=== PATIENT | male | born 2000 | race Hispanic/Latino ===

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

== ENCOUNTER 2020-04-05 14:31 | Emergency (ER) | payer OTHER, MEDICAID, SELFPAY ==
[2020-04-05 14:34] VITALS: BP 127/58; PULSE 95; RESP 16; TEMP 36.7; O2SAT 97; BMI 29.9
[2020-04-05 15:09] LABS: COVID19 -Nasal RAPID Negative (Negative)
--- NOTE | 2020-04-05 16:17 | ED.URI ---
HPI - URI/Sore Throat General Chief Complaint: Upper Respiratory Symptoms Stated Complaint: bad cough, sore throat past week Time Seen by Provider: 04/05/20 16:00 Source: patient Mode of arrival: Ambulatory Limitations: no limitations History of Present Illness HPI Narrative: This is a 20-year-old male who comes with complaint of cough, sore throat for the past week and increased use of his inhaler. Denies fevers or chills. He states he has had about a week of symptoms. He states he has had some congestion kind of in his throat, he states he will cough up some discolored sputum. He denies much nasal congestion. He has not had a lot of sinus pressure but has had some. He states his throat is sore but has not had any changes to his voice. He has having little bit more shortness of breath and wheezing has been using his inhaler 4 times daily rather than his usual 2 times daily. He denies any chest pain or pressure, denies any nausea or vomiting no denies any GI or urinary symptoms no diarrhea. No rashes or skin changes. Besides asthma he takes medication for mood. He takes hydroxyzine, trazodone and fluoxetine 10 uses albuterol inhaler. He has not been on oral steroids in the past. He does smoke 4 cigarettes daily. Denies any illicit. Denies any surgeries. Related Data Previous Rx's Medication Instructions Recorded loratadine [Claritin] 10 mg PO DAILY #14 tab 04/05/20 prednisone 40 mg PO DAILY 5 Days #10 tab 04/05/20 Allergies Allergy/AdvReac Type Severity Reaction Status Date / Time No Known Drug Allergies Allergy Verified 04/05/20 14:34 Review of Systems Review of Systems ROS Unobtainable: All systems reviewed & are unremarkable except as noted in HPI and below Patient History Medical History (Updated 04/05/20 @ 16:28 by Renetta Paredes DO) No pertinent family history Reactive airway disease Surgical History No pertinent past surgical history Social History Smoking Status: Current every day smoker Smoking Status: Current every day smoker tobacco type: vaping alcohol intake frequency: other Substance Use Type: marijuana and hallucinogens Exam Narrative Exam Narrative: GEN: well nourished, well appearing male, alert and oriented x 3, patient appears to be in mild distress. HEENT: Atraumatic, pupils are equal round reactive to light, extraocular movements are intact, nares are clear, TMs are clear with no fluid, there is no conjunctival pallor. Throat is clear without any exudates, mild erythema, cobblestoning, no tonsillar enlargement or uvular deviation HEART: Regular rate and rhythm without murmur, clicks, rubs. LUNGS:Lungs clear to auscultation, no wheezes, rales, crackles, chest moves symmetrically, no wheeze, accessory muscle use or active cough in the room. ABD:bowel sounds normal, soft, non-tender, no guarding, rebound, rigidity, no masses noted, no hepatosplenomegaly MSCL: Non-tender, full range of motion, normal gait NEURO:CN 2-12 intact, sensation normal SKIN: no rash, erythema or other skin changes. Initial Vital Signs Initial Vital Signs: Vital Signs Temperature 98.1 F 04/05/20 14:34 Pulse Rate 95 H 04/05/20 14:34 Respiratory Rate 16 04/05/20 14:34 Blood Pressure 127/58 L 04/05/20 14:34 Pulse Oximetry 97 04/05/20 14:34 Course Orders Ordered: ED Orders 04/05/20 14:39 COVID19 Stat Vital Signs Vital signs: Vital Signs - 8 hr 04/05/20 14:34 04/05/20 16:35 Temperature 98.1 F Pulse Rate 95 H 83 Respiratory Rate 16 Blood Pressure 127/58 L 127/70 Pulse Oximetry 97 98 MDM - URI/Sore Throat Lab Data Attestation: I reviewed the patient's lab results. Labs: Lab Results 04/05/20 Range/Units 14:39 SARS-CoV-2 (PCR) Negative (Negative) Point of Care Testing Rapid Strep A Negative MDM Narrative Medical decision making narrative: 20-year-old male comes in with complaint of sore throat, cough and increased use of his inhaler. Suspect he may have a little bronchitis and/or viral pharyngitis. His point of care strep is negative as well as COVID swab. He does not have any active wheezing but I would start him on oral steroid in addition to his regular albuterol. He states he has plenty and a daily antihistamine. Discharge Plan Departure Patient Disposition: Home Clinical Impression: Pharyngitis Instructions: DI for Viral Pharyngitis Activity Restrictions/Additional Instructions: Follow-up with your physician in the next week if you have not had improvement of your symptoms. Take antihistamine once daily until symptoms improve. You may take this regularly if you find significantly helpful for seasonal type allergies symptoms. Take steroids once daily until gone. [facility] [place]. Continue to use your albuterol inhaler 1-2 puffs every 4 hours as needed. Return to the ER for fevers, new or worsening chest pain, shortness of breath, difficulty with breathing, lightheadedness or passing out, if her requiring her inhaler more than every 4 hours, stridor, voice changes or difficulty breathing. Prescriptions: New loratadine [Claritin] 10 mg tablet 10 mg PO DAILY Qty: 14 RF: 0 prednisone 20 mg tablet 40 mg PO DAILY 5 Days Qty: 10 RF: 0 Referrals: Lion Momin MD [Primary Care Provider] -
[2020-04-05 16:35] VITALS: BP 127/70; PULSE 83; O2SAT 98
== END 2020-04-05 16:36 | disposition home or self-care (01) ==
PROVIDERS: Emergency Provider Emergency Medicine; Family Provider Pediatrics; PCP Pediatrics
DX: J02.9 Acute pharyngitis, unspecified (principal); R05 Cough; Z20.822 Contact with and (suspected) exposure to COVID-19
CPT/HCPCS: 87635; 87880; 99281; 99282; C9803

== ENCOUNTER 2021-04-16 11:52 | Emergency (ER) | payer OTHER, MEDICAID, SELFPAY ==
[2021-04-16] VITALS (11 sets, daily range): BP systolic 135–163; BP diastolic 72–95; PULSE 61–83; RESP 18–22; TEMP 36.4; O2SAT 98–100; BMI 27.3
--- NOTE | 2021-04-16 13:02 | DI.CT.S_ITS ---
PROCEDURE: CT ABDOMEN PELVIS W CON INDICATIONS: RLQ pain, ?appy, ?kidney stone TECHNIQUE: After the administration of intravenous contrast, axial sections acquired from the lung bases to the pubic symphysis. Coronal and sagittal reformats were performed. For radiation dose reduction, the following was used: automated exposure control, adjustment of mA and/or kV according to patient size. COMPARISON: None. FINDINGS: Image quality: Excellent. Lung bases: Unremarkable. Heart: No significant findings. ABDOMEN: Liver: Focal fatty infiltration is seen adjacent to the falciform ligament. Gallbladder: Unremarkable. Biliary ducts: Unremarkable. Pancreas: Unremarkable. Spleen: Unremarkable. Adrenal Glands: Unremarkable. Kidneys and Ureters: Left kidney is mildly anteriorly rotated, which is likely due to anatomic variation. No hydronephrosis. Stomach and Bowel: There is apparent bowel wall thickening within the descending and sigmoid colon into the rectum, which may be secondary to underdistention or colitis. Intramural fat is seen within the cecum with possible superimposed mild bowel wall thickening and trace pericolonic edema. The terminal ileum is mildly patulous. The appendix is normal in size without periappendiceal inflammatory changes. Peritoneum: No abnormal intraperitoneal fluid. No free air. Ventral Wall: No hernias. Abdominal Nodes: No retroperitoneal or mesenteric adenopathy by size criteria. Vessels: Aorta and inferior vena cava are normal in size. PELVIS: Pelvic Organs: The right testicle is located within the right inguinal canal. Bladder: Unremarkable. Pelvic Nodes: No enlarged lymph nodes. Miscellaneous: No hernias are seen. Bones: Unremarkable. IMPRESSION: 1. Mild bowel wall thickening in the descending and sigmoid colon and the rectum and possibly involving the cecum is suspicious for a nonspecific proctocolitis. 2. Normal appendix. 3. Right testicle is located within the right inguinal canal. Correlate for cryptorchidism. Dictated by: Scottie De La O M.D. on 04/16/2021 at 15:11 Approved by: Scottie De La O M.D. on 04/16/2021 at 15:17
[2021-04-16 13:11] LABS: Add Manual Diff / Slide Review NO; Basophils Absolute Auto 100 /uL (0-100); Basophils Percent Auto 0.8 % (0-2); Eosinophils Absolute Auto 200 /uL (0-450); Eosinophils Percent Auto 1.8 % (2-4); Hematocrit 48.1 % (41-53); Hemoglobin 16.4 g/dL (13.5-17.5); Lymphocytes Absolute Auto 2400 /uL (1100-4500); Lymphocytes Percent Auto 25.4 % (25-40); Mean Corpuscular HGB Conc 34.1 % (30-36); Mean Corpuscular Hemoglobin 28.9 PG (26-34); Mean Corpuscular Volume 84.7 fL (80-100); Monocytes Absolute Auto 700 /uL (0-900); Monocytes Percent Auto 7.2 % (3-14); Neutrophils Absolute Auto 6100 /uL (1500-7000); Neutrophils Percent Auto 64.8 % (50-75); Platelet Count 277 X10^3/uL (150-400); Red Blood Cell Count 5.68 X10^6/uL (4.5-5.9); Red Cell Distribution Width 14.1 % (11.6-14.8); White Blood Cell Count 9.5 X10^3/uL (4.5-11.0)
[2021-04-16] MEDS: SODIUM CHLORIDE 0.9% 1,000 ML 1000 ML IV (13:14)
[2021-04-16] MEDS: ONDANSETRON 4 MG/2 ML INJ IV (13:14)
[2021-04-16] MEDS: KETOROLAC 30 MG/ML VIAL 15 MG IV (13:14)
[2021-04-16 13:17] LABS: Alanine Aminotransferase 26 IU/L (<50); Albumin 5.5 g/dL (3.5-5.0); Albumin Globulin Ratio 1.4 (1.0-2.8); Alkaline Phosphatase 51 U/L (38-126); Aspartate Aminotransferase 38 IU/L (17-59); BUN Creatinine Ratio 17.3 (6-22); Bilirubin Total 0.9 mg/dL (0.2-1.3); Blood Urea Nitrogen 14 mg/dL (9-20); Calcium 10.4 mg/dL (8.4-10.2); Carbon Dioxide 27 mmol/L (22-32); Chloride 102 mmol/L (98-107); Estimated Glomerular Filt Rate > 60.0 mL/min (>60); Globulin 3.8 g/dL (1.7-4.1); Glucose 107 mg/dL (70-100); HEMOLYSIS 33 (0-50); Lactate (Lactic Acid) 3.3 mmol/L (0.7-2.1); Lipase 63 U/L (23-300); Sodium 140 mmol/L (137-145); Total Protein 9.3 g/dL (6.3-8.2)
--- NOTE | 2021-04-16 13:40 | ED.NAVMDI ---
HPI - Nausea/Vomiting/Diarrhea <Blanquita Kiser PA-C - Last Filed: 04/16/21 18:01> General Chief complaint: Nausea/Vomiting/Diarrhea Stated complaint: Abd pain and nausea Time Seen by Provider: 04/16/21 11:58 Source: patient Mode of arrival: EMS History of Present Illness HPI Narrative: 21-year-old male with no reported past medical history presents to the ED with 1 day of right-sided abdominal pain, nausea, vomiting. Patient states pain started suddenly this morning with nausea and vomiting, followed by 8/10 right-sided abdominal pain. Patient's last bowel movement was yesterday, which she describes as normal. Patient denies hematochezia, melena, hematemesis. Patient denies fever, chills, chest pain, shortness of breath, dysuria, flank pain, lightheadedness, dizziness, syncope. Patient denies history of abdominal surgeries. Related Data Previous Rx's Medication Instructions Recorded loratadine 10 mg tablet (Claritin) 10 mg PO DAILY #14 tab 04/05/20 Allergies Allergy/AdvReac Type Severity Reaction Status Date / Time No Known Drug Allergies Allergy Verified 04/16/21 11:56 Review of Systems <Blanquita Kiser PA-C - Last Filed: 04/16/21 18:01> Review of Systems ROS Unobtainable: All systems reviewed & are unremarkable except as noted in HPI and below Constitutional Constitutional: Denies chills, Denies fatigue, Denies fever(s), Denies frequent falls, Denies lethargy and Denies weakness Eyes Eyes: Denies change in vision, Denies eye discharge, Denies irritation and Denies loss of vision ENT Ears, Nose, Mouth, and Throat: Denies change in voice, Denies dizziness, Denies neck pain, Denies sore throat and Denies throat swelling Cardiovascular Cardiovascular: Denies chest pain, Denies irregular heart rhythm, Denies lightheadedness, Denies palpitations, Denies dyspnea, Denies dyspnea on exertion and Denies orthopnea Respiratory Respiratory: Denies cough, Denies dyspnea, Denies dyspnea on exertion and Denies wheezing Gastrointestinal Gastrointestinal: Reports abdominal pain, Denies change in bowel habits, Denies diarrhea, Reports nausea and Reports vomiting Genitourinary Genitourinary: Denies hematuria, Denies flank pain, Denies urinary incontinence and Denies urinary urgency Musculoskeletal Musculoskeletal: Denies back pain, Denies muscle weakness, Denies neck pain, Denies numbness and Denies tingling Integumentary/Breasts Skin/Breast: Denies pruritus, Denies erythema, Denies rash and Denies wounds Neurologic Neurologic: Denies behavioral changes, Denies confusion, Denies dizziness, Denies frequent falls, Denies loss of vision, Denies numbness, Denies tingling and Denies weakness Psychiatric Psychiatric: Denies anxiety, Denies behavioral changes, Denies confusion, Denies depression, Denies homicidal ideation and Denies suicidal ideation Endocrine Endocrine: Denies fatigue, Denies flushing and Denies palpitations Hematologic/Lymphatic Hematologic/Lymphatic: Denies easy bruising Allergic/Immunologic Allergic/Immunologic: Denies urticaria, Denies throat swelling and Denies wheezing Patient History <Blanquita Kiser PA-C - Last Filed: 04/16/21 18:01> Medical History (Updated 04/16/21 @ 15:40 by Blanquita Kiser PA-C) No pertinent family history Reactive airway disease Surgical History No pertinent past surgical history Social History Smoking Status: Current every day smoker Smoking Status: Current every day smoker tobacco type: vaping alcohol intake frequency: other Substance Use Type: marijuana and hallucinogens Exam <Blanquita Kiser PA-C - Last Filed: 04/16/21 18:01> Initial Vital Signs Initial Vital Signs: Vital Signs Temperature 97.5 F L 04/16/21 11:56 Pulse Rate 75 04/16/21 11:56 Respiratory Rate 22 04/16/21 11:56 Blood Pressure 135/95 H 04/16/21 11:56 Pulse Oximetry 100 04/16/21 11:56 Const General: cooperative, healthy appearing and comfortable [facility] Head: normal to inspection Eyes General: appearance normal, both eyes and all related structures Neck Neck: normal visual inspection Chest Chest: normal inspection of the chest Resp Effort & Inspection: normal respiratory effort Auscultation: clear to auscultation bilaterally Cardio Rate: regular rate Rhythm: regular rhythm GI Inspection: normal to inspection Other: Abdomen is soft, nondistended. Tender to palpation in the right lower quadrant. General: No CVA tenderness Skin General: no rashes or lesions noted Neuro General: patient alert, patient awake and patient oriented x3 Psych Appearance: grossly normal Mental Status: mental status grossly normal <Gerardo Bowers DO - Last Filed: 04/16/21 18:13> Initial Vital Signs Initial Vital Signs: Vital Signs Temperature 97.5 F L 04/16/21 11:56 Pulse Rate 75 04/16/21 11:56 Respiratory Rate 22 04/16/21 11:56 Blood Pressure 135/95 H 04/16/21 11:56 Pulse Oximetry 100 04/16/21 11:56 Course <Blanquita Kiser PA-C - Last Filed: 04/16/21 18:01> Orders Ordered: ED Orders 04/16/21 11:56 CBC Auto Diff [Complete Blood Count AUTO DIFF] Stat CMP [Comprehensive Metabolic Panel] Stat Lactate (Lactic Acid) Stat Lipase Stat 04/16/21 13:02 CT abdomen pelvis w con Stat Discontinued Medications Sodium Chloride (Normal Saline 0.9%) 1,000 mls @ 1,000 mls/hr IV BOLUS ONE Stop: 04/16/21 14:01 Last Infusion: 04/16/21 14:30 Dose: 0 mls/hr Documented by: Admin: 04/16/21 13:14 Dose: 1,000 mls/hr Documented by: [email or web address] Ketorolac Tromethamine (Ketorolac 30 Mg/Ml Vial) 15 mg IV NOW ONE Stop: 04/16/21 13:03 Last Admin: 04/16/21 13:14 Dose: 15 mg Documented by: [email or web address] Ondansetron HCl (Ondansetron 4 Mg/2 Ml Inj) 4 mg IV NOW ONE Stop: 04/16/21 13:03 Last Admin: 04/16/21 13:14 Dose: 4 mg Documented by: ELOISA Vital Signs Vital signs: Vital Signs - 8 hr 04/16/21 11:56 04/16/21 12:16 04/16/21 12:30 Temperature 97.5 F L Pulse Rate 75 73 83 Respiratory Rate 22 Blood Pressure 135/95 H Pulse Oximetry 100 100 100 04/16/21 12:32 04/16/21 13:00 04/16/21 13:04 Temperature Pulse Rate 71 76 70 Respiratory Rate Blood Pressure 140/77 163/79 H 151/80 H Pulse Oximetry 100 100 100 04/16/21 13:30 04/16/21 13:32 04/16/21 14:00 Temperature Pulse Rate 68 68 61 Respiratory Rate Blood Pressure 152/91 H Pulse Oximetry 100 100 98 04/16/21 14:01 04/16/21 16:10 Temperature Pulse Rate 70 81 Respiratory Rate 18 Blood Pressure 153/72 H 150/73 H Pulse Oximetry 100 99 <Gerardo Bowers, DO - Last Filed: 04/16/21 18:13> Orders Ordered: ED Orders 04/16/21 11:56 CBC Auto Diff [Complete Blood Count AUTO DIFF] Stat CMP [Comprehensive Metabolic Panel] Stat Lactate (Lactic Acid) Stat Lipase Stat 04/16/21 13:02 CT abdomen pelvis w con Stat Discontinued Medications Sodium Chloride (Normal Saline 0.9%) 1,000 mls @ 1,000 mls/hr IV BOLUS ONE Stop: 04/16/21 14:01 Last Infusion: 04/16/21 14:30 Dose: 0 mls/hr Documented by: Admin: 04/16/21 13:14 Dose: 1,000 mls/hr Documented by: [email or web address] Ketorolac Tromethamine (Ketorolac 30 Mg/Ml Vial) 15 mg IV NOW ONE Stop: 04/16/21 13:03 Last Admin: 04/16/21 13:14 Dose: 15 mg Documented by: ELOISA Ondansetron HCl (Ondansetron 4 Mg/2 Ml Inj) 4 mg IV NOW ONE Stop: 04/16/21 13:03 Last Admin: 04/16/21 13:14 Dose: 4 mg Documented by: ELOISA Vital Signs Vital signs: Vital Signs - 8 hr 04/16/21 11:56 04/16/21 12:16 04/16/21 12:30 Temperature 97.5 F L Pulse Rate 75 73 83 Respiratory Rate 22 Blood Pressure 135/95 H Pulse Oximetry 100 100 100 04/16/21 12:32 04/16/21 13:00 04/16/21 13:04 Temperature Pulse Rate 71 76 70 Respiratory Rate Blood Pressure 140/77 163/79 H 151/80 H Pulse Oximetry 100 100 100 04/16/21 13:30 04/16/21 13:32 04/16/21 14:00 Temperature Pulse Rate 68 68 61 Respiratory Rate Blood Pressure 152/91 H Pulse Oximetry 100 100 98 04/16/21 14:01 04/16/21 16:10 Temperature Pulse Rate 70 81 Respiratory Rate 18 Blood Pressure 153/72 H 150/73 H Pulse Oximetry 100 99 MDM - Nausea/Vomiting/Diarrhea <Blanquita Kiser PA-C - Last Filed: 04/16/21 18:01> Lab Data Lab results narrative: Lactate elevated to 3.3. Urine ketones likely due to vomiting. Result diagrams: 04/16/21 11:56 04/16/21 11:56 Labs: Lab Results 04/16/21 04/16/21 04/16/21 Range/Units 11:56 11:56 11:56 WBC 9.5 (4.5-11.0) X10^3/uL RBC 5.68 (4.5-5.9) X10^6/uL Hgb 16.4 (13.5-17.5) g/dL Hct 48.1 (41-53) % MCV 84.7 (80-100) fL MCH 28.9 (26-34) PG MCHC 34.1 (30-36) % RDW 14.1 (11.6-14.8) % Plt Count 277 (150-400) X10^3/uL Neut % (Auto) 64.8 (50-75) % Lymph % (Auto) 25.4 (25-40) % [place]ila % (Auto) 7.2 (3-14) % Eos % (Auto) 1.8 L (2-4) % Baso % (Auto) 0.8 (0-2) % Neut # (Auto) 6100 (0333-9471) /uL Lymph # (Auto) 2400 (3191-9986) /uL [place]ila # (Auto) 700 (0-900) /uL Eos # (Auto) 200 (0-450) /uL Baso # (Auto) 100 (0-100) /uL Sodium 140 (137-145) mmol/L Potassium 4.0 (3.4-5.1) mmol/L Chloride 102 (98-107) mmol/L Carbon Dioxide 27 (22-32) mmol/L BUN 14 (9-20) mg/dL Creatinine 0.81 (0.66-1.25) mg/dL Estimated GFR > 60.0 (>60) mL/min BUN/Creatinine Ratio 17.3 (6-22) Glucose 107 H (70-100) mg/dL Lactate 3.3 H (0.7-2.1) mmol/L Calcium 10.4 H (8.4-10.2) mg/dL Total Bilirubin 0.9 (0.2-1.3) mg/dL AST 38 (17-59) IU/L ALT 26 (<50) IU/L Alkaline Phosphatase 51 (38-126) U/L Total Protein 9.3 H (6.3-8.2) g/dL Albumin 5.5 H (3.5-5.0) g/dL Globulin 3.8 (1.7-4.1) g/dL Albumin/Globulin Ratio 1.4 (1.0-2.8) Lipase 63 (23-300) U/L 04/16/21 Range/Units 15:18 WBC (4.5-11.0) X10^3/uL RBC (4.5-5.9) X10^6/uL Hgb (13.5-17.5) g/dL Hct (41-53) % MCV (80-100) fL MCH (26-34) PG MCHC (30-36) % RDW (11.6-14.8) % Plt Count (150-400) X10^3/uL Neut % (Auto) (50-75) % Lymph % (Auto) (25-40) % Gila % (Auto) (3-14) % Eos % (Auto) (2-4) % Baso % (Auto) (0-2) % Neut # (Auto) (7613-2537) /uL Lymph # (Auto) (1831-2591) /uL Gila # (Auto) (0-900) /uL Eos # (Auto) (0-450) /uL Baso # (Auto) (0-100) /uL Sodium (137-145) mmol/L Potassium (3.4-5.1) mmol/L Chloride (98-107) mmol/L Carbon Dioxide (22-32) mmol/L BUN (9-20) mg/dL Creatinine (0.66-1.25) mg/dL Estimated GFR (>60) mL/min BUN/Creatinine Ratio (6-22) Glucose (70-100) mg/dL Lactate 1.5 (0.7-2.1) mmol/L Calcium (8.4-10.2) mg/dL Total Bilirubin (0.2-1.3) mg/dL AST (17-59) IU/L ALT (<50) IU/L Alkaline Phosphatase (38-126) U/L Total Protein (6.3-8.2) g/dL Albumin (3.5-5.0) g/dL Globulin (1.7-4.1) g/dL Albumin/Globulin Ratio (1.0-2.8) Lipase (23-300) U/L Urine Dip Bedside Urine Glucose Negative Bedside Urine Bilirubin - Negative Bedside Urine Ketone +++ 80 Urine Specific [place] 1.015 Bedside Urine Occult Blood - Negative Bedside Urine pH 8.5 Bedside Urine Protein - Negative Bedside Urine Urobilinogen - Negative Bedside Urine Nitrite - Negative Bedside Urine Leukocytes - Negative Esterase Imaging Data CT scan - abdomen/pelvis: Radiologist's Impression: PROCEDURE:? CT ABDOMEN PELVIS W CON ? INDICATIONS:? RLQ pain, ?appy, ?kidney stone ? TECHNIQUE:? After the administration of intravenous contrast, axial sections acquired from the lung bases to the pubic symphysis.? Coronal and sagittal reformats were performed.? For radiation dose reduction, the following was used:? automated exposure control, adjustment of mA and/or kV according to patient size.? ? COMPARISON:? None. ? FINDINGS:? Image quality:? Excellent.? ? Lung bases:? Unremarkable. Heart:? No significant findings. ? ABDOMEN: Liver:? Focal fatty infiltration is seen adjacent to the falciform ligament. Gallbladder:? Unremarkable. Biliary ducts:? Unremarkable.? ? Pancreas:? Unremarkable.? ? Spleen:? Unremarkable.? ? Adrenal Glands:? Unremarkable.? ? Kidneys and Ureters:? Left kidney is mildly anteriorly rotated, which is likely due to anatomic variation.? No hydronephrosis. ? ? Stomach and Bowel:? There is apparent bowel wall thickening within the descending and sigmoid colon into the rectum, which may be secondary to underdistention or colitis.? Intramural fat is seen within the cecum with possible superimposed mild bowel wall thickening and trace pericolonic edema.? The terminal ileum is mildly patulous.? The appendix is normal in size without periappendiceal inflammatory changes. Peritoneum:? No abnormal intraperitoneal fluid.? No free air.? ? Ventral Wall: ? No hernias.? Abdominal Nodes:? No retroperitoneal or mesenteric adenopathy by size criteria.? Vessels:? Aorta and inferior vena cava are normal in size.? ? PELVIS: Pelvic Organs:? The right testicle is located within the right inguinal canal. Bladder:? Unremarkable.? ? Pelvic Nodes: No enlarged lymph nodes.? Miscellaneous: No hernias are seen. ? ? ? Bones:? Unremarkable.? IMPRESSION:? 1. Mild bowel wall thickening in the descending and sigmoid colon and the rectum and possibly involving the cecum is suspicious for a nonspecific proctocolitis.? 2. Normal appendix. 3. Right testicle is located within the right inguinal canal.? Correlate for cryptorchidism. ? ? Dictated by: Scottie De La O M.D. on 04/16/2021 at 15:11 ? ? Approved by: Scottie De La O M.D. on 04/16/2021 at [facility] Narrative Medical decision making narrative: 21-year-old male with no reported past medical history presents to the ED with 1 day of right-sided abdominal pain, nausea, vomiting. Concern for appendicitis versus urolithiasis versus bowel obstruction. Will order labs, lipase, lactate, UA, CT abdomen pelvis. Will give Ketoralac, IV fluids, Zofran for symptoms. Will reassess. CT shows nonspecific proctocolitis. Patient's pain and vomiting resolved with ketorolac and Zofran. Counseled patient on findings, explained that it is a self-limiting condition. ED return precautions discussed and patient verbalized understanding. Also discussed the finding of cryptorchidism from the CT. Patient agree to follow-up with PCP. Discharge patient. <Gerardo Bowers, DO - Last Filed: 04/16/21 18:13> Lab Data Labs: Lab Results 04/16/21 04/16/21 04/16/21 Range/Units 11:56 11:56 11:56 WBC 9.5 (4.5-11.0) X10^3/uL RBC 5.68 (4.5-5.9) X10^6/uL Hgb 16.4 (13.5-17.5) g/dL Hct 48.1 (41-53) % MCV 84.7 (80-100) fL MCH 28.9 (26-34) PG MCHC 34.1 (30-36) % RDW 14.1 (11.6-14.8) % Plt Count 277 (150-400) X10^3/uL Neut % (Auto) 64.8 (50-75) % Lymph % (Auto) 25.4 (25-40) % Gila % (Auto) 7.2 (3-14) % Eos % (Auto) 1.8 L (2-4) % Baso % (Auto) 0.8 (0-2) % Neut # (Auto) 6100 (4642-0517) /uL Lymph # (Auto) 2400 (0531-6511) /uL Gila # (Auto) 700 (0-900) /uL Eos # (Auto) 200 (0-450) /uL Baso # (Auto) 100 (0-100) /uL Sodium 140 (137-145) mmol/L Potassium 4.0 (3.4-5.1) mmol/L Chloride 102 (98-107) mmol/L Carbon Dioxide 27 (22-32) mmol/L BUN 14 (9-20) mg/dL Creatinine 0.81 (0.66-1.25) mg/dL Estimated GFR > 60.0 (>60) mL/min BUN/Creatinine Ratio 17.3 (6-22) Glucose 107 H (70-100) mg/dL Lactate 3.3 H (0.7-2.1) mmol/L Calcium 10.4 H (8.4-10.2) mg/dL Total Bilirubin 0.9 (0.2-1.3) mg/dL AST 38 (17-59) IU/L ALT 26 (<50) IU/L Alkaline Phosphatase 51 (38-126) U/L Total Protein 9.3 H (6.3-8.2) g/dL Albumin 5.5 H (3.5-5.0) g/dL Globulin 3.8 (1.7-4.1) g/dL Albumin/Globulin Ratio 1.4 (1.0-2.8) Lipase 63 (23-300) U/L 04/16/21 Range/Units 15:18 WBC (4.5-11.0) X10^3/uL RBC (4.5-5.9) X10^6/uL Hgb (13.5-17.5) g/dL Hct (41-53) % MCV (80-100) fL MCH (26-34) PG MCHC (30-36) % RDW (11.6-14.8) % Plt Count (150-400) X10^3/uL Neut % (Auto) (50-75) % Lymph % (Auto) (25-40) % Gila % (Auto) (3-14) % Eos % (Auto) (2-4) % Baso % (Auto) (0-2) % Neut # (Auto) (0865-8887) /uL Lymph # (Auto) (8547-3168) /uL Gila # (Auto) (0-900) /uL Eos # (Auto) (0-450) /uL Baso # (Auto) (0-100) /uL Sodium (137-145) mmol/L Potassium (3.4-5.1) mmol/L Chloride (98-107) mmol/L Carbon Dioxide (22-32) mmol/L BUN (9-20) mg/dL Creatinine (0.66-1.25) mg/dL Estimated GFR (>60) mL/min BUN/Creatinine Ratio (6-22) Glucose (70-100) mg/dL Lactate 1.5 (0.7-2.1) mmol/L Calcium (8.4-10.2) mg/dL Total Bilirubin (0.2-1.3) mg/dL AST (17-59) IU/L ALT (<50) IU/L Alkaline Phosphatase (38-126) U/L Total Protein (6.3-8.2) g/dL Albumin (3.5-5.0) g/dL Globulin (1.7-4.1) g/dL Albumin/Globulin Ratio (1.0-2.8) Lipase (23-300) U/L Urine Dip Bedside Urine Glucose Negative Bedside Urine Bilirubin - Negative Bedside Urine Ketone +++ 80 Urine Specific [place] 1.015 Bedside Urine Occult Blood - Negative Bedside Urine pH 8.5 Bedside Urine Protein - Negative Bedside Urine Urobilinogen - Negative Bedside Urine Nitrite - Negative Bedside Urine Leukocytes - Negative Esterase Discharge Plan Departure Patient Disposition: Home Clinical Impression: Proctocolitis Instructions: DI for Colitis Activity Restrictions/Additional Instructions: You were evaluated in the ED today for nausea, vomiting, abdominal pain. Your labs were normal. Your CT showed some nonspecific proctocolitis, which is a self-limiting condition. You may take Tylenol, ibuprofen for your symptoms. Your CT also showed a undescended testicle on the right side. Please follow-up with your primary care provider for further workup. Return to the ED if your symptoms worsen, you develop fever, chills, uncontrollable vomiting. Prescriptions: No Action loratadine [Claritin] 10 mg tablet 10 mg PO DAILY Qty: 14 0RF <Gerardo Bowers, DO - Last Filed: 04/16/21 18:13> Cosign ED Attending Cosignature Attestation: Dr Bowers Co-Sign Statement: I was available for consultation during this patient's emergency department visit. This chart is signed by myself for administrative purposes only. I did not have direct contact with this patient during this visit. They were seen independently by the APC.
[2021-04-16 15:08] LABS: Reflexed Lactate in 2 Hours Y
[2021-04-16 15:37] LABS: Lactate 2HR (Lactic Acid Rflx) 1.5 mmol/L (0.7-2.1)
== END 2021-04-16 16:11 | disposition home or self-care (01) ==
PROVIDERS: Emergency Provider Student in an Organized Health Care Education/Training Program; Family Provider Pediatrics
DX: K51.30 Ulcerative (chronic) rectosigmoiditis without complications (principal)
CPT/HCPCS: 36415; 74177; 80053; 81003; 83605; 83690; 85025; 96361; 96374; 96375; 99284; J1885; J2405

== ENCOUNTER 2021-04-22 11:25 | Emergency (ER) | payer OTHER, MEDICAID, SELFPAY ==
[2021-04-22 11:31] VITALS: BP 122/69; PULSE 72; RESP 18; TEMP 36.1; O2SAT 98; BMI 28.1
[2021-04-22] MEDS: ONDANSETRON 4 MG/2 ML INJ IV (13:59)
[2021-04-22 14:01] LABS: Add Manual Diff / Slide Review NO; Basophils Absolute Auto 100 /uL (0-100); Basophils Percent Auto 0.8 % (0-2); Eosinophils Absolute Auto 0 /uL (0-450); Eosinophils Percent Auto 0.4 % (2-4); Hematocrit 44.4 % (41-53); Hemoglobin 15.4 g/dL (13.5-17.5); Lymphocytes Absolute Auto 2300 /uL (1100-4500); Lymphocytes Percent Auto 25.9 % (25-40); Mean Corpuscular HGB Conc 34.7 % (30-36); Mean Corpuscular Hemoglobin 28.9 PG (26-34); Mean Corpuscular Volume 83.1 fL (80-100); Monocytes Absolute Auto 600 /uL (0-900); Monocytes Percent Auto 6.8 % (3-14); Neutrophils Absolute Auto 5900 /uL (1500-7000); Neutrophils Percent Auto 66.1 % (50-75); Platelet Count 276 X10^3/uL (150-400); Red Blood Cell Count 5.35 X10^6/uL (4.5-5.9)
[2021-04-22 14:06] LABS: Bacteria Urine Few (2-10); Culture Indicated Urine Cult Not Indicated; Mucus Urine 3+ (Negative); RBC Urine None Seen (0-5/HPF); Squamous Epithelial Cell Urine 1-5 /HPF (0-5/HPF); WBC Urine 1-5/HPF (0-5/HPF)
[2021-04-22 14:18] LABS: Alanine Aminotransferase 39 IU/L (<50); Albumin 5.2 g/dL (3.5-5.0); Albumin Globulin Ratio 1.8 (1.0-2.8); Alkaline Phosphatase 46 U/L (38-126); Aspartate Aminotransferase 31 IU/L (17-59); BUN Creatinine Ratio 17.8 (6-22); Bilirubin Total 0.9 mg/dL (0.2-1.3); Blood Urea Nitrogen 13 mg/dL (9-20); Carbon Dioxide 27 mmol/L (22-32); Chloride 103 mmol/L (98-107); Estimated Glomerular Filt Rate > 60.0 mL/min (>60); Globulin 2.9 g/dL (1.7-4.1); Glucose 105 mg/dL (70-100); HEMOLYSIS < 15 (0-50); Lipase 50 U/L (23-300); Potassium 3.4 mmol/L (3.4-5.1); Sodium 141 mmol/L (137-145); Total Protein 8.1 g/dL (6.3-8.2)
--- NOTE | 2021-04-22 16:17 | ED_ITS ---
HPI - Nausea/Vomiting/Diarrhea General Chief complaint: Nausea/Vomiting/Diarrhea Stated complaint: Vomiting for a week Time Seen by Provider: 04/22/21 15:28 Source: patient Mode of arrival: Ambulatory Limitations: no limitations History of Present Illness HPI Narrative: This is a 21-year-old male comes emergency department with complaint of abdominal pain and vomiting with changes into his stool for the past week patient was seen here diagnosed with proctocolitis after CT scan imaging. He has continued to have emesis 1-2 times most days. Typically with solids he is able to tolerate fluids typically. His abdominal pain has significantly improved and is very mild almost gone. He has had 1 or 2 stools the past week that have been sort of jelly like. He denies any fevers or chills. No chest pain or shortness of breath. He states he typically vomits in the morning but not every day. He has not had issues like in this past. No prior surgeries. He does not have any family history of gastrointestinal issues, colitis or autoimmune issues. He does smoke tobacco, he uses marijuana, hallucinogens and occasional alcohol. He has been taking Zofran for the nausea which is somewhat helpful but he continues to have emesis. Related Data Previous Rx's Medication Instructions Recorded loratadine 10 mg tablet (Claritin) 10 mg PO DAILY #14 tab 04/05/20 metoclopramide HCl 10 mg tablet 10 mg PO Q6H PRN #10 tab 04/22/21 (Reglan) prednisone 20 mg tablet 40 mg PO DAILY #10 tab 04/22/21 Allergies Allergy/AdvReac Type Severity Reaction Status Date / Time No Known Drug Allergies Allergy Verified 04/16/21 11:56 Review of Systems Review of Systems ROS Unobtainable: All systems reviewed & are unremarkable except as noted in HPI and below Patient History Medical History (Updated 04/22/21 @ 16:38 by Renetta Paredes DO) No pertinent family history Reactive airway disease Surgical History No pertinent past surgical history Social History Smoking Status: Current every day smoker Smoking Status: Current every day smoker tobacco type: vaping alcohol intake frequency: other Substance Use Type: marijuana and hallucinogens Exam Narrative Exam Narrative: GENERAL: Alert and oriented x three, well-appearing male in no acute distress. HEENT: Head normocephalic, atraumatic, EOMI, pupils reactive, face symmetric, moist mucous membranes NECK: Supple, full range of motion CARDIOVASCULAR: Regular rate and rhythm without murmurs, rubs or gallops. RESPIRATORY: Breath sounds equal bilaterally, no wheezes rales or rhonchi. ABDOMEN: Soft, nontender. Normoactive bowel sounds all 4 quadrants. No guarding or rebound, rigidity, no mass : No CVA tenderness EXTREMITIES: Normal range of motion, no clubbing or edema. Neurovascularly intact NEUROLOGICAL: Cranial nerves II through XII grossly intact. Moving all extremities SKIN: Warm, dry, no petechiae, no rashes or lesions. Initial Vital Signs Initial Vital Signs: Vital Signs Temperature 97.0 F L 04/22/21 11:31 Pulse Rate 72 04/22/21 11:31 Respiratory Rate 18 04/22/21 11:31 Blood Pressure 122/69 04/22/21 11:31 Pulse Oximetry 98 04/22/21 11:31 Course Orders Ordered: ED Orders 04/22/21 13:33 Urine Microscopic Stat 04/22/21 13:50 Complete Blood Count AUTO DIFF Stat Comprehensive Metabolic Panel Stat Lipase Stat Discontinued Medications Methylprednisolone (Methylprednisolone 125 Mg/2 Ml Vial) 125 mg IV NOW ONE Stop: 04/22/21 16:37 Last Admin: 04/22/21 16:52 Dose: 125 mg Documented by: MALKA Ondansetron HCl (Ondansetron 4 Mg/2 Ml Inj) 4 mg IV NOW ONE Stop: 04/22/21 13:33 Last Admin: 04/22/21 13:59 Dose: 4 mg Documented by: KADEN Vital Signs Vital signs: Vital Signs - 8 hr 04/22/21 16:55 Pulse Rate 72 Respiratory Rate 18 Blood Pressure 130/73 Pulse Oximetry 97 MDM - Nausea/Vomiting/Diarrhea Lab Data Result diagrams: 04/22/21 13:50 04/22/21 13:50 Labs: Lab Results 04/22/21 04/22/21 04/22/21 Range/Units 13:33 13:50 13:50 WBC 9.0 (4.5-11.0) X10^3/uL RBC 5.35 (4.5-5.9) X10^6/uL Hgb 15.4 (13.5-17.5) g/dL Hct 44.4 (41-53) % MCV 83.1 (80-100) fL MCH 28.9 (26-34) PG MCHC 34.7 (30-36) % RDW 14.0 (11.6-14.8) % Plt Count 276 (150-400) X10^3/uL Neut % (Auto) 66.1 (50-75) % Lymph % (Auto) 25.9 (25-40) % [place] % (Auto) 6.8 (3-14) % Eos % (Auto) 0.4 L (2-4) % Baso % (Auto) 0.8 (0-2) % Neut # (Auto) 5900 (8904-6865) /uL Lymph # (Auto) 2300 (7236-1621) /uL [place] # (Auto) 600 (0-900) /uL Eos # (Auto) 0 (0-450) /uL Baso # (Auto) 100 (0-100) /uL Sodium 141 (137-145) mmol/L Potassium 3.4 (3.4-5.1) mmol/L Chloride 103 (98-107) mmol/L Carbon Dioxide 27 (22-32) mmol/L BUN 13 (9-20) mg/dL Creatinine 0.73 (0.66-1.25) mg/dL Estimated GFR > 60.0 (>60) mL/min BUN/Creatinine Ratio 17.8 (6-22) Glucose 105 H (70-100) mg/dL Calcium 10.0 (8.4-10.2) mg/dL Total Bilirubin 0.9 (0.2-1.3) mg/dL AST 31 (17-59) IU/L ALT 39 (<50) IU/L Alkaline Phosphatase 46 (38-126) U/L Total Protein 8.1 (6.3-8.2) g/dL Albumin 5.2 H (3.5-5.0) g/dL Globulin 2.9 (1.7-4.1) g/dL Albumin/Globulin Ratio 1.8 (1.0-2.8) Lipase 50 (23-300) U/L Urine RBC None seen (0-5/HPF) Urine WBC 1-5/hpf (0-5/HPF) Ur Squamous Epith Cells 1-5 /hpf (0-5/HPF) Urine Bacteria Few (2-10) H (None) Urine Mucus 3+ H (Negative) Ur Culture Indicated? Cult not indicated Urine Dip Bedside Urine Glucose Negative Bedside Urine Bilirubin - Negative Bedside Urine Ketone +/- 5 Urine Specific [place] 1.030 Bedside Urine Occult Blood - Negative Bedside Urine pH 6.0 Bedside Urine Protein + 30 Bedside Urine Urobilinogen - Negative Bedside Urine Nitrite - Negative Bedside Urine Leukocytes - Negative Esterase Imaging Data CT 04/16/21: Radiologist's Impression: [address] [address] [address] Scan Report Signed Patient: Aaln Doran MR#: [id number] : 2000 Acct:[id number] Age/Sex: 21 / M Date of Service: 04/16/21 Loc: ED Accession Number: [id number] ?? Procedure: CT abdomen pelvis w con Ordering Provider: Blanquita Kiser P.A-C PROCEDURE:? CT ABDOMEN PELVIS W CON ? INDICATIONS:? RLQ pain, ?appy, ?kidney stone ? TECHNIQUE:? After the administration of intravenous contrast, axial sections acquired from the lung bases to the pubic symphysis.? Coronal and sagittal reformats were performed.? For radiation dose reduction, the following was used:? automated exposure control, adjustment of mA and/or kV according to patient size.? ? COMPARISON:? None. ? FINDINGS:? Image quality:? Excellent.? ? Lung bases:? Unremarkable. Heart:? No significant findings. ? ABDOMEN: Liver:? Focal fatty infiltration is seen adjacent to the falciform ligament. Gallbladder:? Unremarkable. Biliary ducts:? Unremarkable.? ? Pancreas:? Unremarkable.? ? Spleen:? Unremarkable.? ? Adrenal Glands:? Unremarkable.? ? Kidneys and Ureters:? Left kidney is mildly anteriorly rotated, which is likely due to anatomic variation.? No hydronephrosis. ? ? Stomach and Bowel:? There is apparent bowel wall thickening within the descending and sigmoid colon into the rectum, which may be secondary to underdistention or colitis.? Intramural fat is seen within the cecum with possible superimposed mild bowel wall thickening and trace pericolonic edema.? The terminal ileum is mildly patulous.? The appendix is normal in size without periappendiceal inflammatory changes. Peritoneum:? No abnormal intraperitoneal fluid.? No free air.? ? Ventral Wall: ? No hernias.? Abdominal Nodes:? No retroperitoneal or mesenteric adenopathy by size criteria.? Vessels:? Aorta and inferior vena cava are normal in size.? ? PELVIS: Pelvic Organs:? The right testicle is located within the right inguinal canal. Bladder:? Unremarkable.? ? Pelvic Nodes: No enlarged lymph nodes.? Miscellaneous: No hernias are seen. ? ? ? Bones:? Unremarkable.? IMPRESSION:? 1. Mild bowel wall thickening in the descending and sigmoid colon and the rectum and possibly involving the cecum is suspicious for a nonspecific proctocolitis.? 2. Normal appendix. 3. Right testicle is located within the right inguinal canal.? Correlate for cryptorchidism. ? ? Dictated by: Scottie De La O M.D. on 04/16/2021 at 15:11 ? ? Approved by: Scottie De La O M.D. on 04/16/2021 at 15:17?? MDM Narrative Medical decision making narrative: This is a 21-year-old male with diagnosis of proctocolitis proximally week ago with some persistent vomiting but improvement of his abdominal pain. He does use marijuana but has had recent reason for his symptoms. He was sent home with plan for self limiting. He comes today with a persistent vomiting and difficulty tolerating solids. We discussed CT imaging but patient and family defer his abdominal exam is reassuring as well as his labs. Plan for a prescription for Reglan, steroids for possible inflammatory colitis 1st dose here with prescription. If patient is able to tolerate he does need follow-up for colonoscopy in the future. We discussed return precautions which patient and mother who is at bedside both feel comfortable with. Discharge Plan Departure Patient Disposition: Home Clinical Impression: Colitis, Vomiting Instructions: DI for Colitis Activity Restrictions/Additional Instructions: Follow-up for recheck. You should have colonoscopy in the future to evaluate with your episode of colitis. Can follow up with primary care for referral this can be with the filter pulp washer or a general surgeon. Referral is included below. Take steroids daily until gone. You may take Reglan 1 tablet every 6 hours as needed for nausea. Prescription sent to [facility] in [place]. Please return for fevers, new or worsening abdominal pain, persistent vomiting, inability to tolerate oral fluids, lightheadedness or passing out, worsening black or bloody stools or other new or concerning symptoms. Prescriptions: New metoclopramide HCl [Reglan] 10 mg tablet 10 mg PO Q6H PRN (Reason: nausea and vomiting) Qty: 10 0RF prednisone 20 mg tablet 40 mg PO DAILY Qty: 10 0RF No Action loratadine [Claritin] 10 mg tablet 10 mg PO DAILY Qty: 14 0RF Referrals: Baldemar Samuel MD [Physician] - Stand Alone Forms: Work Release Note
[2021-04-22] MEDS: methylPREDNISolone 125 MG/2 ML VIAL IV (16:52)
[2021-04-22 16:55] VITALS: BP 130/73; PULSE 72; RESP 18; O2SAT 97
== END 2021-04-22 16:59 | disposition home or self-care (01) ==
PROVIDERS: Emergency Provider Emergency Medicine; Family Provider Pediatrics
DX: K52.9 Noninfective gastroenteritis and colitis, unspecified (principal); R11.10 Vomiting, unspecified; F17.290 Nicotine dependence, other tobacco product, uncomplicated
CPT/HCPCS: 36415; 80053; 81003; 81015; 83690; 85025; 96374; 96375; 99284; J2405; J2930

== ENCOUNTER 2021-05-26 17:58 | Emergency (ER) | payer OTHER, MEDICAID, SELFPAY ==
[2021-05-26 18:19] VITALS: BP 135/73; PULSE 77; RESP 16; TEMP 36.5; O2SAT 97; BMI 26.4
[2021-05-26 19:29] VITALS: BP 137/73; PULSE 62; O2SAT 97
[2021-05-26 21:11] LABS: Add Manual Diff / Slide Review NO; Basophils Absolute Auto 100 /uL (0-100); Basophils Percent Auto 1.2 % (0-2); Eosinophils Absolute Auto 100 /uL (0-450); Eosinophils Percent Auto 1.1 % (2-4); Hematocrit 44.6 % (41-53); Hemoglobin 15.3 g/dL (13.5-17.5); Lymphocytes Absolute Auto 2200 /uL (1100-4500); Lymphocytes Percent Auto 21.6 % (25-40); Mean Corpuscular HGB Conc 34.2 % (30-36); Mean Corpuscular Hemoglobin 28.9 PG (26-34); Mean Corpuscular Volume 84.6 fL (80-100); Monocytes Absolute Auto 600 /uL (0-900); Neutrophils Absolute Auto 7100 /uL (1500-7000); Neutrophils Percent Auto 70.1 % (50-75); Platelet Count 263 X10^3/uL (150-400); Red Blood Cell Count 5.27 X10^6/uL (4.5-5.9); Red Cell Distribution Width 13.8 % (11.6-14.8); White Blood Cell Count 10.1 X10^3/uL (4.5-11.0)
[2021-05-26 21:16] LABS: Alanine Aminotransferase 27 IU/L (<50); Albumin 4.7 g/dL (3.5-5.0); Albumin Globulin Ratio 1.5 (1.0-2.8); Alkaline Phosphatase 35 U/L (38-126); Aspartate Aminotransferase 26 IU/L (17-59); BUN Creatinine Ratio 15.1 (6-22); Bilirubin Total 0.8 mg/dL (0.2-1.3); Blood Urea Nitrogen 11 mg/dL (9-20); Calcium 9.4 mg/dL (8.4-10.2); Carbon Dioxide 25 mmol/L (22-32); Chloride 106 mmol/L (98-107); Estimated Glomerular Filt Rate > 60.0 mL/min (>60); Globulin 3.1 g/dL (1.7-4.1); Glucose 99 mg/dL (70-100); HEMOLYSIS < 15 (0-50); Lipase 48 U/L (23-300); Potassium 4.2 mmol/L (3.4-5.1); Sodium 142 mmol/L (137-145); Total Protein 7.8 g/dL (6.3-8.2)
--- NOTE | 2021-05-26 21:27 | ED_ITS ---
HPI - Nausea/Vomiting/Diarrhea General Chief complaint: Nausea/Vomiting/Diarrhea Stated complaint: ABD pain nausea vomiting Time Seen by Provider: 05/26/21 20:44 History of Present Illness HPI Narrative: Patient is a 21-year-old male who presents with intermittent nausea and vomiting. He does admit to drinking alcohol quite a bit at times. He was previously seen and evaluated here the end of March for something similar. He was at work today he vomited at work it was instructed that he come to the ER for further evaluation. He has not had any fever chills no diarrhea. He act ually does not have any abdominal pain. Related Data Previous Rx's Medication Instructions Recorded loratadine 10 mg tablet (Claritin) 10 mg PO DAILY #14 tab 04/05/20 metoclopramide HCl 10 mg tablet 10 mg PO Q6H PRN #10 tab 04/22/21 (Reglan) prednisone 20 mg tablet 40 mg PO DAILY #10 tab 04/22/21 ondansetron 4 mg disintegrating 4 mg PO Q8H PRN #10 tab 05/26/21 tablet Allergies Allergy/AdvReac Type Severity Reaction Status Date / Time No Known Drug Allergies Allergy Verified 04/16/21 11:56 Review of Systems Review of Systems Narrative: GENERAL: Denies chills, fatigue, malaise, fever, sweats, travel HEENT: Denies sinus pain, ear pain, sore throat, difficulty swallowing, neck pain RESPIRATORY: Denies dyspnea, cough, wheezing, hemoptysis, sputum. CARDIOVASCULAR: Denies chest pain, palpitations, orthopnea, edema GASTROINTESTINAL: See HPI : Denies dysuria, frequency, incontinence, hematuria, urinary retention, flank pain. MUSCULOSKELETAL: Denies weakness, joint pain, or bony pain SKIN: No rash, no erythema, no pruritus NEUROLOGIC: Denies weakness, dizziness, headache, numbness, change in speech, confusion PSYCHIATRIC: No concerning psychosocial issues. 12 point review of systems is negative except for those stated above and HPI Patient History Medical History (Updated 05/26/21 @ 21:33 by Wendy Ivey DO) No pertinent family history Reactive airway disease Surgical History No pertinent past surgical history Social History Smoking Status: Current every day smoker Smoking Status: Current every day smoker tobacco type: vaping alcohol intake frequency: other Substance Use Type: marijuana and hallucinogens Exam Initial Vital Signs Initial Vital Signs: Vital Signs Temperature 97.7 F 05/26/21 18:19 Pulse Rate 77 05/26/21 18:19 Respiratory Rate 16 05/26/21 18:19 Blood Pressure 135/73 05/26/21 18:19 Pulse Oximetry 97 05/26/21 18:19 GENERAL: Alert well-appearing 21-year-old male and in no acute distress. HEENT: Head atraumatic,EOMI, pupils reactive, face symmetric, moist mucous membranes CARDIOVASCULAR: Regular rate and rhythm without murmurs, rubs or gallops. RESPIRATORY: Breath sounds equal bilaterally, no wheezes rales or rhonchi. ABDOMEN: Soft, nontender. Normoactive bowel sounds all 4 quadrants. No guarding or rebound. EXTREMITIES: Normal range of motion, no clubbing or edema. Neurovascularly intact NEUROLOGICAL: Alert and oriented x4.Normal gait and speech. SKIN: Warm, dry, no laceration, no petechiae, no rashes or lesions. Course Orders Ordered: ED Orders 05/26/21 20:58 Complete Blood Count AUTO DIFF Stat Comprehensive Metabolic Panel Stat Lipase Stat Vital Signs Vital signs: Vital Signs - 8 hr 05/26/21 21:38 Pulse Rate 86 Respiratory Rate 16 Blood Pressure 136/72 Pulse Oximetry 98 MDM - Nausea/Vomiting/Diarrhea Lab Data Result diagrams: 05/26/21 20:58 05/26/21 20:58 Labs: Lab Results 05/26/21 05/26/21 Range/Units 20:58 20:58 WBC 10.1 (4.5-11.0) X10^3/uL RBC 5.27 (4.5-5.9) X10^6/uL Hgb 15.3 (13.5-17.5) g/dL Hct 44.6 (41-53) % MCV 84.6 (80-100) fL MCH 28.9 (26-34) PG MCHC 34.2 (30-36) % RDW 13.8 (11.6-14.8) % Plt Count 263 (150-400) X10^3/uL Neut % (Auto) 70.1 (50-75) % Lymph % (Auto) 21.6 L (25-40) % [place] % (Auto) 6.0 (3-14) % Eos % (Auto) 1.1 L (2-4) % Baso % (Auto) 1.2 (0-2) % Neut # (Auto) 7100 H (6868-5035) /uL Lymph # (Auto) 2200 (1864-8654) /uL [place] # (Auto) 600 (0-900) /uL Eos # (Auto) 100 (0-450) /uL Baso # (Auto) 100 (0-100) /uL Sodium 142 (137-145) mmol/L Potassium 4.2 (3.4-5.1) mmol/L Chloride 106 (98-107) mmol/L Carbon Dioxide 25 (22-32) mmol/L BUN 11 (9-20) mg/dL Creatinine 0.73 (0.66-1.25) mg/dL Estimated GFR > 60.0 (>60) mL/min BUN/Creatinine Ratio 15.1 (6-22) Glucose 99 (70-100) mg/dL Calcium 9.4 (8.4-10.2) mg/dL Total Bilirubin 0.8 (0.2-1.3) mg/dL AST 26 (17-59) IU/L ALT 27 (<50) IU/L Alkaline Phosphatase 35 L (38-126) U/L Total Protein 7.8 (6.3-8.2) g/dL Albumin 4.7 (3.5-5.0) g/dL Globulin 3.1 (1.7-4.1) g/dL Albumin/Globulin Ratio 1.5 (1.0-2.8) Lipase 48 (23-300) U/L [facility] Narrative Medical decision making narrative: the patient overall appears well he has normal appearing blood work he is not vomiting in the ED his abdomen is. At this time no need for any further workup or interventions. Patient actually just needs a work note. Discharge Plan Departure Patient Disposition: Home Clinical Impression: Nausea & vomiting Instructions: DI for Vomiting -- Adult Activity Restrictions/Additional Instructions: *You have been diagnosed with nausea vomiting *What to do: Increase fluid intake as tolerated. At this time blood work is overall reassuring. *Continue to take medications as directed Zofran 4 mg every 8 hours if needed for nausea vomiting--> SENT TO [facility] *Follow up with your primary care provider in 2-3 days or call [phone] *Return to ER if you should have persistent vomiting abdominal pain fever or any new, worsening or concerning symptoms Prescriptions: New ondansetron 4 mg tablet,disintegrating 4 mg PO Q8H PRN (Reason: nausea and vomiting) Qty: 10 0RF No Action loratadine [Claritin] 10 mg tablet 10 mg PO DAILY Qty: 14 0RF metoclopramide HCl [Reglan] 10 mg tablet 10 mg PO Q6H PRN (Reason: nausea and vomiting) Qty: 10 0RF prednisone 20 mg tablet 40 mg PO DAILY Qty: 10 0RF Stand Alone Forms: Work Release Note
[2021-05-26 21:38] VITALS: BP 136/72; PULSE 86; RESP 16; O2SAT 98
--- NOTE | 2021-05-26 21:59 | PC.NURSE ---
pt has had trouble keeping food down since drinking with friends a wk ago. pt c/o nausea, no active vomiting at this time, mucous membranes moist
== END 2021-05-26 21:40 | disposition home or self-care (01) ==
PROVIDERS: Emergency Provider Emergency Medicine; Family Provider Pediatrics
DX: R11.2 Nausea with vomiting, unspecified (principal); F17.290 Nicotine dependence, other tobacco product, uncomplicated
CPT/HCPCS: 36415; 80053; 83690; 85025; 99283

== ENCOUNTER 2021-07-19 16:32 | Emergency (ER) | payer OTHER, MEDICAID, SELFPAY ==
[2021-07-19 16:52] VITALS: BP 123/71; PULSE 76; RESP 16; TEMP 36.2; O2SAT 98; BMI 25.8
--- NOTE | 2021-07-19 20:03 | PC.NURSE ---
At time of assessment, patient using cell phone, initially stated he needed a work note. Does not appear to be in acute distress, not actively vomiting. Provider notified.
--- NOTE | 2021-07-19 20:21 | ED.NAVMDI ---
HPI - Nausea/Vomiting/Diarrhea General Chief complaint: Nausea/Vomiting/Diarrhea Stated complaint: Stomach Acting Up, Vomiting Time Seen by Provider: 07/19/21 20:15 Source: patient Mode of arrival: Ambulatory History of Present Illness HPI Narrative: 21-year-old male who since the beginning of the year has had episodes where he has had nausea and vomiting. He states that when the episodes occur they last for approximately 1 week and then resolved. He has been seen in the past here in the emergency department for the symptoms. Has had a CT scan which showed no acute pathology however there was some concern about a un descended testicle. He denies any abdominal pain. No testicular pain. No urinary symptoms. He states that both of his testicles are in his scrotum. He has not seen any other providers about his GI symptoms. He states he was sent to the emergency department by his boss for evaluation. Patient does have nausea medication at home. Related Data Previous Rx's Medication Instructions Recorded loratadine 10 mg tablet (Claritin) 10 mg PO DAILY #14 tab 04/05/20 metoclopramide HCl 10 mg tablet 10 mg PO Q6H PRN #10 tab 04/22/21 (Reglan) prednisone 20 mg tablet 40 mg PO DAILY #10 tab 04/22/21 capsaicin 0.075 % topical cream 1 applic TOPICAL BID PRN #120 g 05/30/21 ondansetron 4 mg disintegrating 4 mg PO Q8H PRN #10 tab 05/30/21 tablet Allergies Allergy/AdvReac Type Severity Reaction Status Date / Time No Known Drug Allergies Allergy Verified 05/30/21 14:13 Review of Systems Constitutional Constitutional: Denies fever(s) Cardiovascular Cardiovascular: Reports system reviewed and no additional complaints, except as documented Respiratory Respiratory: Reports system reviewed and no additional complaints, except as documented Gastrointestinal Gastrointestinal: Denies abdominal pain, Denies change in bowel habits, Denies diarrhea, Reports nausea and Reports vomiting Genitourinary Genitourinary: Denies oliguria, Denies dysuria, Denies scrotal swelling, Denies testicular pain and Denies urinary frequency Integumentary/Breasts Skin/Breast: Reports system reviewed and no additional complaints, except as documented Neurologic Neurologic: Reports system reviewed and no additional complaints, except as documented Hematologic/Lymphatic On Anticoagulants: No Patient History Medical History No pertinent family history Reactive airway disease Surgical History No pertinent past surgical history Social History Smoking Status: Current every day smoker Smoking Status: Current every day smoker tobacco type: vaping alcohol intake frequency: other Substance Use Type: marijuana and hallucinogens Exam Initial Vital Signs Initial Vital Signs: Vital Signs Temperature 97.2 F L 07/19/21 16:52 Pulse Rate 76 07/19/21 16:52 Respiratory Rate 16 07/19/21 16:52 Blood Pressure 123/71 07/19/21 16:52 Pulse Oximetry 98 07/19/21 16:52 Const General: cooperative, healthy appearing, comfortable and well developed HENNV Head: normal to inspection and normocephalic Resp Effort & Inspection: normal respiratory effort Auscultation: clear to auscultation bilaterally Cardio Rate: regular rate Rhythm: regular rhythm GI Inspection: normal to inspection Skin General: no rashes or lesions noted Neuro General: patient alert, patient awake and moves all extremities Extrem General: normal to inspection and capillary refill normal Course Vital Signs Vital signs: Vital Signs - 8 hr 07/19/21 16:52 Temperature 97.2 F L Pulse Rate 76 Respiratory Rate 16 Blood Pressure 123/71 Pulse Oximetry 98 MDM - Nausea/Vomiting/Diarrhea Lab Data Labs: Urine Dip Bedside Urine Glucose Negative Bedside Urine Bilirubin - Negative Bedside Urine Ketone - Negative Urine Specific [place] 1.015 Bedside Urine Occult Blood - Negative Bedside Urine pH 7.0 Bedside Urine Protein +/- 15 Bedside Urine Urobilinogen - Negative Bedside Urine Nitrite - Negative Bedside Urine Leukocytes - Negative Esterase [facility] Narrative Medical decision making narrative: Patient does have benign exam. He has no abdominal tenderness just nausea. Given the workup that he has had in the emergency department did not feel that further labs nor radiologic studies are warranted. Inform the patient that he should follow-up with his primary doctor and also a GI provider. He is given return precautions. He expressed understanding and agreement. Discharge Plan Departure Patient Disposition: Home Clinical Impression: Vomiting Instructions: DI for Vomiting -- Adult Activity Restrictions/Additional Instructions: I do recommend that you can you with a nausea medication as needed. Contact the general surgery department at the number provided below his this is going to be the next step in the workup of your nausea and vomiting. Also contact your primary doctor for a follow-up. Prescriptions: No Action capsaicin 0.075 % cream 1 applic topical BID PRN (Reason: vomiting) Qty: 120 0RF Rx Instructions: do not wash area for at least 30 min after application ondansetron 4 mg tablet,disintegrating 4 mg PO Q8H PRN (Reason: nausea and vomiting) Qty: 10 0RF loratadine [Claritin] 10 mg tablet 10 mg PO DAILY Qty: 14 0RF metoclopramide HCl [Reglan] 10 mg tablet 10 mg PO Q6H PRN (Reason: nausea and vomiting) Qty: 10 0RF prednisone 20 mg tablet 40 mg PO DAILY Qty: 10 0RF Referrals: Baldemar Samuel MD [Physician] - Miscellaneous,MD Le [Primary Care Provider] - Stand Alone Forms: Work Release Note
== END 2021-07-19 20:28 | disposition home or self-care (01) ==
PROVIDERS: Emergency Provider Emergency Medicine; Family Provider Pediatrics
DX: R11.2 Nausea with vomiting, unspecified (principal)
CPT/HCPCS: 81003; 99281

== ENCOUNTER 2021-10-05 20:34 | Emergency (ER) | payer OTHER, MEDICAID, SELFPAY ==
[2021-10-05 20:38] VITALS: BP 128/79; PULSE 89; RESP 17; TEMP 36.9; O2SAT 98; BMI 25.4
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
[2021-10-06 00:06] VITALS: BP 124/78; PULSE 81; RESP 16; O2SAT 98
== END 2021-10-06 00:01 | disposition home or self-care (01) ==
PROVIDERS: Emergency Provider Emergency Medicine; Family Provider Pediatrics
DX: S06.0X0A Concussion without loss of consciousness, initial encounter (principal); S00.411A Abrasion of right ear, initial encounter; Y04.2XXA Assault by strike against or bumped into by another person, initial encounter
CPT/HCPCS: 99281

== ENCOUNTER 2022-04-09 13:26 | Emergency (ER) | payer OTHER, MEDICAID, SELFPAY ==
[2022-04-09 13:46] VITALS: BP 135/103; PULSE 86; RESP 19; TEMP 36.6; O2SAT 97
--- NOTE | 2022-04-09 13:55 | DI.RAD.S_ITS ---
PROCEDURE: XR ACUTE ABDOMEN SERIES INDICATIONS: pain in abdomen. constipated TECHNIQUE: One view chest and two views of the abdomen were acquired. COMPARISON: None. FINDINGS: Surgical changes and devices: None. Chest: Lungs are clear. Heart size is normal. No pleural effusions. No pneumoperitoneum. Abdomen: Bowel gas pattern is normal. No suspicious calcifications. Visualized solid organ contours appear normal. Bones: No suspicious bony lesions. IMPRESSION: Unremarkable acute abdominal series Approved by: Esteban Milian M.D. on 04/09/2022 at 14:06
[2022-04-09 14:16] LABS: Add Manual Diff / Slide Review NO; Basophils Absolute Auto 100 /uL (0-100); Basophils Percent Auto 0.7 % (0-2); Eosinophils Absolute Auto 100 /uL (0-450); Eosinophils Percent Auto 0.6 % (2-4); Hematocrit 46.6 % (41-53); Hemoglobin 16.5 g/dL (13.5-17.5); Lymphocytes Absolute Auto 2400 /uL (1100-4500); Lymphocytes Percent Auto 22.3 % (25-40); Mean Corpuscular HGB Conc 35.3 % (30-36); Mean Corpuscular Hemoglobin 28.9 PG (26-34); Mean Corpuscular Volume 81.7 fL (80-100); Monocytes Absolute Auto 900 /uL (0-900); Monocytes Percent Auto 8.5 % (3-14); Neutrophils Absolute Auto 7200 /uL (1500-7000); Neutrophils Percent Auto 67.9 % (50-75); Platelet Count 292 X10^3/uL (150-400); Red Blood Cell Count 5.71 X10^6/uL (4.5-5.9); White Blood Cell Count 10.6 X10^3/uL (4.5-11.0)
[2022-04-09 14:21] LABS: INR 1.2 (0.9-1.3); Prothrombin Time 13.3 SECONDS (10.1-12.7)
[2022-04-09 14:27] LABS: Alanine Aminotransferase 37 IU/L (<50); Albumin 5.3 g/dL (3.5-5.0); Albumin Globulin Ratio 1.5 (1.0-2.8); Alkaline Phosphatase 49 U/L (38-126); Aspartate Aminotransferase 30 IU/L (17-59); BUN Creatinine Ratio 21.1 (6-22); Bilirubin Total 1.7 mg/dL (0.2-1.3); Blood Urea Nitrogen 15 mg/dL (9-20); Calcium 9.8 mg/dL (8.4-10.2); Carbon Dioxide 26 mmol/L (22-32); Chloride 99 mmol/L (98-107); Estimated Glomerular Filt Rate > 60 mL/min (>60); Globulin 3.6 g/dL (1.7-4.1); Glucose 104 mg/dL (70-100); HEMOLYSIS < 15 (0-50); Lipase 48 U/L (23-300); Potassium 3.6 mmol/L (3.4-5.1); Sodium 141 mmol/L (137-145); Total Protein 8.9 g/dL (6.3-8.2)
--- NOTE | 2022-04-09 19:03 | DI.US.S_ITS ---
PROCEDURE: US ABDOMEN LIMITED INDICATIONS: RUQ/RLQ PAIN TECHNIQUE: Real-time focused scanning was performed of the abdomen, with image documentation. COMPARISON: None. FINDINGS: Pancreas obscured by bowel gas. No intrahepatic or extrahepatic biliary ductal dilatation. Gallbladder and liver normal in appearance. Appendix not visualized. IMPRESSION: Pancreas obscured by bowel gas. Otherwise normal right upper quadrant ultrasound. Appendix not visualized. Dictated by: Savage Cheema M.D. on 04/09/2022 at 19:56 Approved by: Savage Cheema M.D. on 04/09/2022 at 19:57
--- NOTE | 2022-04-09 19:06 | ED_ITS ---
HPI - Nausea/Vomiting/Diarrhea <DANIA Price - Last Filed: 04/09/22 20:33> General Chief complaint: Nausea/Vomiting/Diarrhea Stated complaint: vomiting T-3/cant keep food down Time Seen by Provider: 04/09/22 18:59 Source: patient Mode of arrival: Family Vehicle History of Present Illness HPI Narrative: This is a 22-year-old male who presents emergency department complaining of vomiting for the last 3 days, no bowel movement for the last 3 days. He states that he is had no appetite and has not been able to eat anything due to the pain, complains of right upper quadrant pain, right lower quadrant pain an otherwise generalized across his abdomen. He denies fever chills but states that he is hot and cold. Denies any history of abdominal pain, denies dysuria or urinary frequency, denies cough cold or congestion. He denies rectal pain or recent illness. Endorses marijuana use, denies epigastric pain or stool changes. Related Data Previous Rx's Medication Instructions Recorded loratadine 10 mg tablet (Claritin) 10 mg PO DAILY #14 tabs 04/05/20 metoclopramide HCl 10 mg tablet 10 mg PO Q6H PRN nausea and 04/22/21 (Reglan) vomiting #10 tabs prednisone 20 mg tablet 40 mg PO DAILY #10 tabs 04/22/21 capsaicin 0.075 % topical cream 1 applic topical BID PRN vomiting 05/30/21 #120 grams ondansetron 4 mg disintegrating 4 mg PO Q8H PRN nausea and 05/30/21 tablet vomiting #10 tabs ondansetron HCl 4 mg tablet 4 mg PO Q8HR PRN nausea and 04/09/22 vomiting #14 tabs Allergies Allergy/AdvReac Type Severity Reaction Status Date / Time No Known Drug Allergies Allergy Verified 04/09/22 13:50 Review of Systems <DANIA Price - Last Filed: 04/09/22 20:33> Review of Systems ROS Unobtainable: All systems reviewed & are unremarkable except as noted in HPI and below Patient History <DANIA Price - Last Filed: 04/09/22 20:33> Medical History (Updated 04/09/22 @ 20:28 by DANIA Price) No pertinent family history Reactive airway disease Surgical History No pertinent past surgical history Social History Smoking Status: Current every day smoker Smoking Status: Current every day smoker tobacco type: vaping alcohol intake frequency: other Substance Use Type: marijuana Exam <DANIA Price - Last Filed: 04/09/22 20:33> Narrative Exam Narrative: Reviewed vitals signs and nursing notes. General: cooperative, comfortable, in no acute distress, well groomed HEENT: symmetrical facial expressions, moist mucous membranes Cardiovascular: regular rate and rhythm, no peripheral edema, warm extremities Respiratory: normal effort, able to speak in complete sentences, without wheezing, stridor, or abnormal breath sounds. No retractions or tachypnea. GI: abdomen soft, tender to palpation over the right upper quadrant with deep inspiration, positive Han's sign, mild tenderness over the right lower quadrant and periumbilical region, no other tenderness, abdomen is without masses, rebound tenderness or exquisite tenderness with exam. MSK: moves all extremities, neurovascularly intact, no weakness, normal tone Skin: brisk capillary refill, without pallor or erythema Neuro: normal speech and cognition, A&O x3, ambulatory, clear speech Psych: mental status is grossly normal, congruent mood, normal affect, pleasant and cooperative Initial Vital Signs Initial Vital Signs: Vital Signs Temperature 97.8 F 04/09/22 13:46 Pulse Rate 86 04/09/22 13:46 Respiratory Rate 04/09/22 13:46 Blood Pressure 135/103 H 04/09/22 13:46 Pulse Oximetry 97 04/09/22 13:46 Oxygen Delivery Method 04/09/22 13:46 <Jerome Adams DO - Last Filed: 04/10/22 03:42> Initial Vital Signs Initial Vital Signs: Vital Signs Temperature 97.8 F 04/09/22 13:46 Pulse Rate 86 04/09/22 13:46 Respiratory Rate 04/09/22 13:46 Blood Pressure 135/103 H 04/09/22 13:46 Pulse Oximetry 97 04/09/22 13:46 Oxygen Delivery Method 04/09/22 13:46 Course <DANIA Price - Last Filed: 04/09/22 20:33> Orders Ordered: ED Orders 04/09/22 19:03 US abdomen limited Stat 04/09/22 19:09 Covid-19 + FLU A/B + RSV - PCR Stat Discontinued Medications Sodium Chloride (Normal Saline 0.9%) 1,000 mls @ 1,000 mls/hr IV BOLUS ONE Stop: 04/09/22 20:02 Last Infusion: 04/09/22 20:18 Dose: 0 mls/hr Documented By: Admin: 04/09/22 19:16 Dose: 1,000 mls/hr Documented By: AMU Ketorolac Tromethamine (Ketorolac 30 Mg/Ml Vial) 15 mg IV NOW ONE Stop: 04/09/22 19:44 Last Admin: 04/09/22 19:58 Dose: 15 mg Documented By: BS Ondansetron HCl (Ondansetron 4 Mg/2 Ml Inj) 4 mg IV NOW ONE Stop: 04/09/22 19:04 Last Admin: 04/09/22 19:16 Dose: 4 mg Documented By: AMKorey Vital Signs Vital signs: Vital Signs - 8 hr 04/09/22 20:19 04/09/22 20:20 04/09/22 20:20 Pulse Rate 72 66 Blood Pressure 127/68 Pulse Oximetry 97 97 <Jerome Adams DO - Last Filed: 04/10/22 03:42> Orders Ordered: ED Orders 04/09/22 19:03 US abdomen limited Stat 04/09/22 19:09 Covid-19 + FLU A/B + RSV - PCR Stat Discontinued Medications Sodium Chloride (Normal Saline 0.9%) 1,000 mls @ 1,000 mls/hr IV BOLUS ONE Stop: 04/09/22 20:02 Last Infusion: 04/09/22 20:18 Dose: 0 mls/hr Documented By: Admin: 04/09/22 19:16 Dose: 1,000 mls/hr Documented By: AMU Ketorolac Tromethamine (Ketorolac 30 Mg/Ml Vial) 15 mg IV NOW ONE Stop: 04/09/22 19:44 Last Admin: 04/09/22 19:58 Dose: 15 mg Documented By: BS Ondansetron HCl (Ondansetron 4 Mg/2 Ml Inj) 4 mg IV NOW ONE Stop: 04/09/22 19:04 Last Admin: 04/09/22 19:16 Dose: 4 mg Documented By: AMU Vital Signs Vital signs: Vital Signs - 8 hr 04/09/22 20:19 04/09/22 20:20 04/09/22 20:20 Pulse Rate 72 66 Blood Pressure 127/68 Pulse Oximetry 97 97 MDM - Nausea/Vomiting/Diarrhea <Zoë Almeida [facility] - Last Filed: 04/09/22 20:33> Lab Data 04/09/22 13:58 04/09/22 13:58 Labs: Lab Results 04/09/22 04/09/22 04/09/22 Range/Units 13:58 13:58 13:58 WBC 10.6 (4.5-11.0) X10^3/uL RBC 5.71 (4.5-5.9) X10^6/uL Hgb 16.5 (13.5-17.5) g/dL Hct 46.6 (41-53) % MCV 81.7 (80-100) fL MCH 28.9 (26-34) PG MCHC 35.3 (30-36) % RDW 14.0 (11.6-14.8) % Plt Count 292 (150-400) X10^3/uL Neut % (Auto) 67.9 (50-75) % Lymph % (Auto) 22.3 L (25-40) % [place] % (Auto) 8.5 (3-14) % Eos % (Auto) 0.6 L (2-4) % Baso % (Auto) 0.7 (0-2) % Neut # (Auto) 7200 H (5043-7193) /uL Lymph # (Auto) 2400 (8826-1710) /uL [place] # (Auto) 900 (0-900) /uL Eos # (Auto) 100 (0-450) /uL Baso # (Auto) 100 (0-100) /uL PT 13.3 H (10.1-12.7) SECONDS INR 1.2 (0.9-1.3) Sodium 141 (137-145) mmol/L Potassium 3.6 (3.4-5.1) mmol/L Chloride 99 (98-107) mmol/L Carbon Dioxide 26 (22-32) mmol/L BUN 15 (9-20) mg/dL Creatinine 0.71 (0.66-1.25) mg/dL Estimated GFR > 60 (>60) mL/min BUN/Creatinine Ratio 21.1 (6-22) Glucose 104 H (70-100) mg/dL Lactate (0.7-2.1) mmol/L Calcium 9.8 (8.4-10.2) mg/dL Magnesium (1.6-2.3) mg/dL Total Bilirubin 1.7 H (0.2-1.3) mg/dL AST 30 (17-59) IU/L ALT 37 (<50) IU/L Alkaline Phosphatase 49 (38-126) U/L C-Reactive Protein (<1.0) mg/dL Total Protein 8.9 H (6.3-8.2) g/dL Albumin 5.3 H (3.5-5.0) g/dL Globulin 3.6 (1.7-4.1) g/dL Albumin/Globulin Ratio 1.5 (1.0-2.8) Lipase 48 (23-300) U/L SARS-CoV-2 (PCR) (Negative) Influenza A (RT-PCR) (NEGATIVE) Influenza B (RT-PCR) (NEGATIVE) RSV (PCR) (Negative) 04/09/22 04/09/22 04/09/22 Range/Units 13:58 13:58 13:58 WBC (4.5-11.0) X10^3/uL RBC (4.5-5.9) X10^6/uL Hgb (13.5-17.5) g/dL Hct (41-53) % MCV (80-100) fL MCH (26-34) PG MCHC (30-36) % RDW (11.6-14.8) % Plt Count (150-400) X10^3/uL Neut % (Auto) (50-75) % Lymph % (Auto) (25-40) % [place] % (Auto) (3-14) % Eos % (Auto) (2-4) % Baso % (Auto) (0-2) % Neut # (Auto) (2652-1289) /uL Lymph # (Auto) (3323-3454) /uL [place] # (Auto) (0-900) /uL Eos # (Auto) (0-450) /uL Baso # (Auto) (0-100) /uL PT (10.1-12.7) SECONDS INR (0.9-1.3) Sodium (137-145) mmol/L Potassium (3.4-5.1) mmol/L Chloride (98-107) mmol/L Carbon Dioxide (22-32) mmol/L BUN (9-20) mg/dL Creatinine (0.66-1.25) mg/dL Estimated GFR (>60) mL/min BUN/Creatinine Ratio (6-22) Glucose (70-100) mg/dL Lactate 1.0 (0.7-2.1) mmol/L Calcium (8.4-10.2) mg/dL Magnesium 2.3 (1.6-2.3) mg/dL Total Bilirubin (0.2-1.3) mg/dL AST (17-59) IU/L ALT (<50) IU/L Alkaline Phosphatase (38-126) U/L C-Reactive Protein < 0.5 (<1.0) mg/dL Total Protein (6.3-8.2) g/dL Albumin (3.5-5.0) g/dL Globulin (1.7-4.1) g/dL Albumin/Globulin Ratio (1.0-2.8) Lipase (23-300) U/L SARS-CoV-2 (PCR) (Negative) Influenza A (RT-PCR) (NEGATIVE) Influenza B (RT-PCR) (NEGATIVE) RSV (PCR) (Negative) 04/09/22 Range/Units 19:09 WBC (4.5-11.0) X10^3/uL RBC (4.5-5.9) X10^6/uL Hgb (13.5-17.5) g/dL Hct (41-53) % MCV (80-100) fL MCH (26-34) PG MCHC (30-36) % RDW (11.6-14.8) % Plt Count (150-400) X10^3/uL Neut % (Auto) (50-75) % Lymph % (Auto) (25-40) % [place] % (Auto) (3-14) % Eos % (Auto) (2-4) % Baso % (Auto) (0-2) % Neut # (Auto) (2763-7372) /uL Lymph # (Auto) (9444-9064) /uL [place] # (Auto) (0-900) /uL Eos # (Auto) (0-450) /uL Baso # (Auto) (0-100) /uL PT (10.1-12.7) SECONDS INR (0.9-1.3) Sodium (137-145) mmol/L Potassium (3.4-5.1) mmol/L Chloride (98-107) mmol/L Carbon Dioxide (22-32) mmol/L BUN (9-20) mg/dL Creatinine (0.66-1.25) mg/dL Estimated GFR (>60) mL/min BUN/Creatinine Ratio (6-22) Glucose (70-100) mg/dL Lactate (0.7-2.1) mmol/L Calcium (8.4-10.2) mg/dL Magnesium (1.6-2.3) mg/dL Total Bilirubin (0.2-1.3) mg/dL AST (17-59) IU/L ALT (<50) IU/L Alkaline Phosphatase (38-126) U/L C-Reactive Protein (<1.0) mg/dL Total Protein (6.3-8.2) g/dL Albumin (3.5-5.0) g/dL Globulin (1.7-4.1) g/dL Albumin/Globulin Ratio (1.0-2.8) Lipase (23-300) U/L SARS-CoV-2 (PCR) Negative (Negative) Influenza A (RT-PCR) Flu a negative (NEGATIVE) Influenza B (RT-PCR) Flu b negative (NEGATIVE) RSV (PCR) Negative (Negative) Imaging Data Abdominal x-ray: Radiologist's Impression: PROCEDURE:? XR ACUTE ABDOMEN SERIES ? INDICATIONS:? pain in abdomen. constipated ? TECHNIQUE:? One view chest and two views of the abdomen were acquired.? ? COMPARISON:? None. ? FINDINGS:? ? Surgical changes and devices:? None.? ? Chest:? Lungs are clear.? Heart size is normal.? No pleural effusions.? No pneumoperitoneum.? ? Abdomen:? Bowel gas pattern is normal.? No suspicious calcifications.? Visualized solid organ contours appear normal.? ? Bones:? No suspicious bony lesions.? ? IMPRESSION:? Unremarkable acute abdominal series ? ? ? Approved by: Esteban Milian M.D. on 04/09/2022 at 14:06? US - abdomen: Radiologist's Impression: PROCEDURE: US ABDOMEN LIMITED ? INDICATIONS:? RUQ/RLQ PAIN ? TECHNIQUE:? Real-time focused scanning was performed of the abdomen, with image documentation.? ? COMPARISON:? None. ? FINDINGS:? Pancreas obscured by bowel gas.? No intrahepatic or extrahepatic biliary ductal dilatation.? Gallbladder and liver normal in appearance.? Appendix not visualized. ? IMPRESSION:? Pancreas obscured by bowel gas.? Otherwise normal right upper quadrant ultrasound.? Appendix not visualized. ? ? Dictated by: Savage Cheema M.D. on 04/09/2022 at 19:56 ? ? Approved by: Savage Cheema M.D. on 04/09/2022 at 19:57 ? MDM Narrative Medical decision making narrative: Chief Complaint: Abdominal pain This is a 22-year-old male who presents emergency department complaining of vomiting for the last 3 days, no bowel movement for the last 3 days. He states that he is had no appetite and has not been able to eat anything due to the pain, complains of right upper quadrant pain, right lower quadrant pain an otherwise generalized across his abdomen. Differential diagnoses include but are not limited to: Cyclic vomiting syndrome, Cholecystitis, cholelithiasis, esophagitis, gastritis, peptic ulcer, bowel obstruction, acute viral illness including COVID influenza, pancreatitis, perforated viscus, appendicitis, colitis, diverticulitis, proctocolitis IBD/IBS, intestinal ischemia, acute cystitis, pyelonephritis, renal/ureteral calculi, AAA, hernia, colon cancer, herniated disk, urinary retention. I have reviewed the patient's vital signs and nursing notes as well as prior records if available. 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 No peritoneal signs on abdominal exam. Serial abdominal exam without increase in abdominal pain. Patient feels much better after his Zofran and has not any further vomiting. He is p.o. tolerant at this time, his symptoms have been improved, discussed THC/marijuana use as he was asking if it would help with his symptoms since he uses this frequently. I informed him that this can cause recurrent vomiting episodes and he states that he uses this frequently. No exquisite tenderness with exam. Patient's symptoms improved over duration of stay with above-stated therapies. Social considerations that may affect disposition: none Questions are addressed and there is agreement with the plan and for follow-up. Patient is appropriate for outpatient management. MIPS: This encounter doesn't have any diagnosis' associated with MIPS criteria. <Jerome Adams, DO - Last Filed: 04/10/22 03:42> Lab Data Labs: Lab Results 04/09/22 04/09/22 04/09/22 Range/Units 13:58 13:58 13:58 WBC 10.6 (4.5-11.0) X10^3/uL RBC 5.71 (4.5-5.9) X10^6/uL Hgb 16.5 (13.5-17.5) g/dL Hct 46.6 (41-53) % MCV 81.7 (80-100) fL MCH 28.9 (26-34) PG MCHC 35.3 (30-36) % RDW 14.0 (11.6-14.8) % Plt Count 292 (150-400) X10^3/uL Neut % (Auto) 67.9 (50-75) % Lymph % (Auto) 22.3 L (25-40) % [place] % (Auto) 8.5 (3-14) % Eos % (Auto) 0.6 L (2-4) % Baso % (Auto) 0.7 (0-2) % Neut # (Auto) 7200 H (0653-5248) /uL Lymph # (Auto) 2400 (1412-3238) /uL [place] # (Auto) 900 (0-900) /uL Eos # (Auto) 100 (0-450) /uL Baso # (Auto) 100 (0-100) /uL PT 13.3 H (10.1-12.7) SECONDS INR 1.2 (0.9-1.3) Sodium 141 (137-145) mmol/L Potassium 3.6 (3.4-5.1) mmol/L Chloride 99 (98-107) mmol/L Carbon Dioxide 26 (22-32) mmol/L BUN 15 (9-20) mg/dL Creatinine 0.71 (0.66-1.25) mg/dL Estimated GFR > 60 (>60) mL/min BUN/Creatinine Ratio 21.1 (6-22) Glucose 104 H (70-100) mg/dL Lactate (0.7-2.1) mmol/L Calcium 9.8 (8.4-10.2) mg/dL Magnesium (1.6-2.3) mg/dL Total Bilirubin 1.7 H (0.2-1.3) mg/dL AST 30 (17-59) IU/L ALT 37 (<50) IU/L Alkaline Phosphatase 49 (38-126) U/L C-Reactive Protein (<1.0) mg/dL Total Protein 8.9 H (6.3-8.2) g/dL Albumin 5.3 H (3.5-5.0) g/dL Globulin 3.6 (1.7-4.1) g/dL Albumin/Globulin Ratio 1.5 (1.0-2.8) Lipase 48 (23-300) U/L SARS-CoV-2 (PCR) (Negative) Influenza A (RT-PCR) (NEGATIVE) Influenza B (RT-PCR) (NEGATIVE) RSV (PCR) (Negative) 04/09/22 04/09/22 04/09/22 Range/Units 13:58 13:58 13:58 WBC (4.5-11.0) X10^3/uL RBC (4.5-5.9) X10^6/uL Hgb (13.5-17.5) g/dL Hct (41-53) % MCV (80-100) fL MCH (26-34) PG MCHC (30-36) % RDW (11.6-14.8) % Plt Count (150-400) X10^3/uL Neut % (Auto) (50-75) % Lymph % (Auto) (25-40) % [place] % (Auto) (3-14) % Eos % (Auto) (2-4) % Baso % (Auto) (0-2) % Neut # (Auto) (7012-7566) /uL Lymph # (Auto) (7839-0000) /uL [place] # (Auto) (0-900) /uL Eos # (Auto) (0-450) /uL Baso # (Auto) (0-100) /uL PT (10.1-12.7) SECONDS INR (0.9-1.3) Sodium (137-145) mmol/L Potassium (3.4-5.1) mmol/L Chloride (98-107) mmol/L Carbon Dioxide (22-32) mmol/L BUN (9-20) mg/dL Creatinine (0.66-1.25) mg/dL Estimated GFR (>60) mL/min BUN/Creatinine Ratio (6-22) Glucose (70-100) mg/dL Lactate 1.0 (0.7-2.1) mmol/L Calcium (8.4-10.2) mg/dL Magnesium 2.3 (1.6-2.3) mg/dL Total Bilirubin (0.2-1.3) mg/dL AST (17-59) IU/L ALT (<50) IU/L Alkaline Phosphatase (38-126) U/L C-Reactive Protein < 0.5 (<1.0) mg/dL Total Protein (6.3-8.2) g/dL Albumin (3.5-5.0) g/dL Globulin (1.7-4.1) g/dL Albumin/Globulin Ratio (1.0-2.8) Lipase (23-300) U/L SARS-CoV-2 (PCR) (Negative) Influenza A (RT-PCR) (NEGATIVE) Influenza B (RT-PCR) (NEGATIVE) RSV (PCR) (Negative) 04/09/22 Range/Units 19:09 WBC (4.5-11.0) X10^3/uL RBC (4.5-5.9) X10^6/uL Hgb (13.5-17.5) g/dL Hct (41-53) % MCV (80-100) fL MCH (26-34) PG MCHC (30-36) % RDW (11.6-14.8) % Plt Count (150-400) X10^3/uL Neut % (Auto) (50-75) % Lymph % (Auto) (25-40) % [place] % (Auto) (3-14) % Eos % (Auto) (2-4) % Baso % (Auto) (0-2) % Neut # (Auto) (3858-5101) /uL Lymph # (Auto) (4912-3403) /uL [place] # (Auto) (0-900) /uL Eos # (Auto) (0-450) /uL Baso # (Auto) (0-100) /uL PT (10.1-12.7) SECONDS INR (0.9-1.3) Sodium (137-145) mmol/L Potassium (3.4-5.1) mmol/L Chloride (98-107) mmol/L Carbon Dioxide (22-32) mmol/L BUN (9-20) mg/dL Creatinine (0.66-1.25) mg/dL Estimated GFR (>60) mL/min BUN/Creatinine Ratio (6-22) Glucose (70-100) mg/dL Lactate (0.7-2.1) mmol/L Calcium (8.4-10.2) mg/dL Magnesium (1.6-2.3) mg/dL Total Bilirubin (0.2-1.3) mg/dL AST (17-59) IU/L ALT (<50) IU/L Alkaline Phosphatase (38-126) U/L C-Reactive Protein (<1.0) mg/dL Total Protein (6.3-8.2) g/dL Albumin (3.5-5.0) g/dL Globulin (1.7-4.1) g/dL Albumin/Globulin Ratio (1.0-2.8) Lipase (23-300) U/L SARS-CoV-2 (PCR) Negative (Negative) Influenza A (RT-PCR) Flu a negative (NEGATIVE) Influenza B (RT-PCR) Flu b negative (NEGATIVE) RSV (PCR) Negative (Negative) Discharge Plan Departure Patient Disposition: Home Clinical Impression: Vomiting Instructions: DI for Vomiting -- Adult, DI for Cyclic Vomiting Syndrome-Adult Activity Restrictions/Additional Instructions: *You have been diagnosed with vomiting for last 3 days, sorry for your symptoms, there is no evidence of appendicitis or gallbladder problems on your ultrasound today. If your symptoms worsen, please come back for another evaluation. Please try to take a holiday from marijuana as this can cause recurrent vomi ting. Please use Zofran as needed for your vomiting, return for fever, chills or severe pain. Please try to obtain a primary care provider so you can have follow-up on these issues with specialist as needed. If you are constipated please try using MiraLax once daily to help. *What to do: *Please continue to take your regular medications as directed. [x ] New medication prescriptions sent to your pharmacy: [ ] [ ] New medication written as a paper prescription [ ] No new medications given *Please follow up with your primary care provider in 2-3 days, call for an appointment. Let them know you were seen in the Emergency Department and that we asked that you be seen for follow-up. We will electronically transmit a record of today's note if your PCP is in our system *If you do not have a primary care provider please contact [phone] to establish care with one of the [facility] primary care providers. *Return to Emergency Department if you should have any new, worsening, or concerning symptoms, such as [fever greater than 101F, chills, worsening pain, persistent vomiting or other bothersome symptoms]. Prescriptions: New ondansetron HCl 4 mg tablet 4 mg PO Q8HR PRN (Reason: nausea and vomiting) Qty: 14 0RF No Action capsaicin 0.075 % cream 1 applic topical BID PRN (Reason: vomiting) Qty: 120 0RF Rx Instructions: do not wash area for at least 30 min after application ondansetron 4 mg tablet,disintegrating 4 mg PO Q8H PRN (Reason: nausea and vomiting) Qty: 10 0RF loratadine [Claritin] 10 mg tablet 10 mg PO DAILY Qty: 14 0RF metoclopramide HCl [Reglan] 10 mg tablet 10 mg PO Q6H PRN (Reason: nausea and vomiting) Qty: 10 0RF prednisone 20 mg tablet 40 mg PO DAILY Qty: 10 0RF Referrals: Miscellaneous,Doctor, MD [Primary Care Provider] - Stand Alone Forms: Patient Portal/API <Jerome Adams DO - Last Filed: 04/10/22 03:42> [facility] ED Attending Norma Attestation: I was immediately available in the department for consultation. This documentation has been reviewed and I agree with assessment and plan. Supervised by Jerome Adams, DO
[2022-04-09] MEDS: SODIUM CHLORIDE 0.9% 1,000 ML 1000 ML IV (19:16)
[2022-04-09] MEDS: ONDANSETRON 4 MG/2 ML INJ IV (19:16)
[2022-04-09 19:22] LABS: Magnesium 2.3 mg/dL (1.6-2.3)
[2022-04-09 19:25] LABS: C-Reactive Protein Quant < 0.5 mg/dL (<1.0)
[2022-04-09 19:55] LABS: COVID-19 CEPHEID 4-PLEX PCR Negative (Negative); Influenza A - CEPHEID Flu A NEGATIVE (NEGATIVE); Influenza B - CEPHEID Flu B NEGATIVE (NEGATIVE); Respiratory Syncytial Virus Negative (Negative)
[2022-04-09] MEDS: KETOROLAC 30 MG/ML VIAL 15 MG IV (19:58)
[2022-04-09 20:19] VITALS: PULSE 72; O2SAT 97
[2022-04-09 20:20] VITALS: BP 127/68; PULSE 66; O2SAT 97
== END 2022-04-09 20:35 | disposition home or self-care (01) ==
PROVIDERS: Emergency Medicine; Emergency Provider Nurse Practitioner Critical Care Medicine; Family Provider Pediatrics
DX: R11.10 Vomiting, unspecified (principal); R10.84 Generalized abdominal pain; Z20.822 Contact with and (suspected) exposure to COVID-19
CPT/HCPCS: 0241U; 36415; 74022; 76705; 80053; 83605; 83690; 83735; 85025; 85610; 86140; 96361; 96374; 96375; 99284; J1885; J2405

== ENCOUNTER 2022-08-30 13:52 | Emergency (ER) | payer OTHER, MEDICAID, SELFPAY ==
[2022-08-30 14:06] VITALS: BP 131/88; PULSE 80; RESP 17; TEMP 37.1; O2SAT 96; BMI 28.3
--- NOTE | 2022-08-30 14:20 | ED.ABDPAIN ---
HPI - Abdominal Pain <Audrey Titus PA-C - Last Filed: 08/30/22 20:24> General Chief Complaint: Abdominal Pain Stated Complaint: Abd pain, vomiting, blood in urine Time Seen by Provider: 08/30/22 14:15 Source: patient Mode of arrival: Family Vehicle History of Present Illness HPI narrative: This is a 22-year-old male who presents with concern for nausea with vomiting and abdominal pain for 4 days since the 26 of August. Patient states this feels very similar to previous episodes he has had with similar abdominal pain and episodes of vomiting that can last up to 1-2 weeks he is had this going on on and off over the past year. Does state that his discomfort and symptoms feel similar to previous episodes, he endorses generalized abdominal pain pointing to the area of his belly button. He states he is able to keep some fluids down but it seems like he vomits them up within an hour or 2 he is had very little to eat in the last 4 days. He also states he is not had a bowel movement for 2 days he states this is not atypical for him sometimes he goes for about a week without having a BM. He does not think he is had any fevers, chills has noticed slightly darker urine this morning, has not had any dysuria flank pain blood in his stool blood in his vomit or any other symptoms. Except that Patient states he generally feels weak and unwell. He denies recreational drug use and states he has not had any alcohol since April. He can not think of anything different around the 3rd or 4th of this month that would have caused his symptoms to begin. He denies any other complaints or concerns. Related Data Previous Rx's Medication Instructions Recorded loratadine 10 mg tablet (Claritin) 10 mg PO DAILY #14 tabs 04/05/20 metoclopramide HCl 10 mg tablet 10 mg PO Q6H PRN nausea and 04/22/21 (Reglan) vomiting #10 tabs prednisone 20 mg tablet 40 mg PO DAILY #10 tabs 04/22/21 capsaicin 0.075 % topical cream 1 applic topical BID PRN vomiting 05/30/21 #120 grams ondansetron 4 mg disintegrating 4 mg PO Q8H PRN nausea and 05/30/21 tablet vomiting #10 tabs ondansetron HCl 4 mg tablet 4 mg PO Q8HR PRN nausea and 04/09/22 vomiting #14 tabs cefdinir 300 mg capsule 300 mg PO Q12H UTI 5 days #10 caps 08/30/22 ondansetron 4 mg disintegrating 4 mg PO Q6H PRN nausea and 08/30/22 tablet vomiting 10 days #30 tabs Allergies Allergy/AdvReac Type Severity Reaction Status Date / Time No Known Drug Allergies Allergy Verified 08/30/22 14:06 Review of Systems <Audrey Titus PA-C - Last Filed: 08/30/22 20:24> Review of Systems Narrative: See HPI Patient History <Audrey Titus PA-C - Last Filed: 08/30/22 20:24> Medical History (Updated 08/30/22 @ 17:44 by Audrey Titus PA-C) No pertinent family history Reactive airway disease Surgical History No pertinent past surgical history Social History Smoking Status: Current every day smoker Smoking Status: Current every day smoker tobacco type: cigarettes and vaping alcohol intake frequency: other Substance Use Type: marijuana Exam <Audrey Titus PA-C - Last Filed: 08/30/22 20:24> Narrative Exam Narrative: GENERAL: 22 year old patient appears stated age. Well-developed patient, in mild distress. HEAD: Atraumatic. Normocephalic. EYES: Pupils equal round and reactive. Extraocular motions intact. No scleral icterus. No injection or drainage. ENT: Nose without bleeding, purulent drainage. Throat without erythema, tonsillar hypertrophy or exudate. Airway patent. NECK: Trachea midline. Non tender CARDIOVASCULAR: Regular rate and rhythm without murmurs, gallops, or rubs. RESPIRATORY: Clear to auscultation. Breath sounds equal bilaterally. No wheezes, rales, or rhonchi. GASTROINTESTINAL: Abdomen soft, there is generalized tenderness, most tender left upper quadrant and mild tenderness right lower quadrant, otherwise mildly tender, nondistended, no CVA tenderness. EXTREMITIES: No edema or joint tenderness. BACK: Nontender without deformity or crepitance. No flank tenderness. NEURO: AOx3. SKIN: Pale appearing, No rash or erythema of visible areas Initial Vital Signs Initial Vital Signs: Vital Signs Temperature 98.7 F 08/30/22 14:06 Pulse Rate 80 08/30/22 14:06 Respiratory Rate 17 08/30/22 14:06 Blood Pressure 131/88 08/30/22 14:06 Pulse Oximetry 96 08/30/22 14:06 Oxygen Delivery Method Room Air 08/30/22 14:06 <Gerardo Bowers DO - Last Filed: 08/30/22 21:14> Initial Vital Signs Initial Vital Signs: Vital Signs Temperature 98.7 F 08/30/22 14:06 Pulse Rate 80 08/30/22 14:06 Respiratory Rate 17 08/30/22 14:06 Blood Pressure 131/88 08/30/22 14:06 Pulse Oximetry 96 08/30/22 14:06 Oxygen Delivery Method Room Air 08/30/22 14:06 Course <Audrey Titus PA-C - Last Filed: 08/30/22 20:24> Course Course Narrative: Rechecked the patient he did have improvement of his nausea and abdominal discomfort with Toradol and Zofran. 1632 Orders Ordered: ED Orders 08/30/22 14:20 Urine Culture Stat Urine Microscopic Stat 08/30/22 14:54 Complete Blood Count AUTO DIFF Stat Comprehensive Metabolic Panel Stat Lipase Stat 08/30/22 15:25 US abdomen limited Stat Discontinued Medications Sodium Chloride (Normal Saline 0.9%) 1,000 mls @ 1,000 mls/hr IV BOLUS ONE Stop: 08/30/22 15:14 Last Infusion: 08/30/22 16:46 Dose: 0 mls/hr Documented By: Admin: 08/30/22 15:04 Dose: 1,000 mls/hr Documented By: GRISELDA Sodium Chloride (Normal Saline 0.9%) 1,000 mls @ 1,000 mls/hr IV BOLUS ONE Stop: 08/30/22 17:02 Last Infusion: 08/30/22 18:05 Dose: 0 mls/hr Documented By: Admin: 08/30/22 16:49 Dose: 1,000 mls/hr Documented By: GRISELDA Ketorolac Tromethamine (Ketorolac 30 Mg/Ml Vial) 15 mg IV NOW ONE Stop: 08/30/22 14:19 Last Admin: 08/30/22 15:04 Dose: 15 mg Documented By: MPO Ondansetron HCl (Ondansetron 4 Mg/2 Ml Inj) 4 mg IV NOW ONE Stop: 08/30/22 14:16 Last Admin: 08/30/22 15:04 Dose: 4 mg Documented By: GRISELDA Vital Signs Vital signs: Vital Signs - 8 hr 08/30/22 14:06 08/30/22 18:07 Temperature 98.7 F 98.1 F Pulse Rate 80 74 Respiratory Rate 17 20 Blood Pressure 131/88 154/87 H Pulse Oximetry 96 98 Oxygen Delivery Method Room Air Room Air <Gerardo Bowers DO - Last Filed: 08/30/22 21:14> Orders Ordered: ED Orders 08/30/22 14:20 Urine Culture Stat Urine Microscopic Stat 08/30/22 14:54 Complete Blood Count AUTO DIFF Stat Comprehensive Metabolic Panel Stat Lipase Stat 08/30/22 15:25 US abdomen limited Stat Discontinued Medications Sodium Chloride (Normal Saline 0.9%) 1,000 mls @ 1,000 mls/hr IV BOLUS ONE Stop: 08/30/22 15:14 Last Infusion: 08/30/22 16:46 Dose: 0 mls/hr Documented By: Admin: 08/30/22 15:04 Dose: 1,000 mls/hr Documented By: GRISELDA Sodium Chloride (Normal Saline 0.9%) 1,000 mls @ 1,000 mls/hr IV BOLUS ONE Stop: 08/30/22 17:02 Last Infusion: 08/30/22 18:05 Dose: 0 mls/hr Documented By: Admin: 08/30/22 16:49 Dose: 1,000 mls/hr Documented By: GRISELDA Ketorolac Tromethamine (Ketorolac 30 Mg/Ml Vial) 15 mg IV NOW ONE Stop: 08/30/22 14:19 Last Admin: 08/30/22 15:04 Dose: 15 mg Documented By: GRISELDA Ondansetron HCl (Ondansetron 4 Mg/2 Ml Inj) 4 mg IV NOW ONE Stop: 08/30/22 14:16 Last Admin: 08/30/22 15:04 Dose: 4 mg Documented By: GRISELDA Vital Signs Vital signs: Vital Signs - 8 hr 08/30/22 14:06 08/30/22 18:07 Temperature 98.7 F 98.1 F Pulse Rate 80 74 Respiratory Rate 17 20 Blood Pressure 131/88 154/87 H Pulse Oximetry 96 98 Oxygen Delivery Method Room Air Room Air MDM - Abdominal Pain <Audrey Titus PA-C - Last Filed: 08/30/22 20:24> Differential Diagnosis Differential diagnosis: Likely abdominal pain, acute appendicitis, calculus of kidney, constipation, pancreatitis and other (Marijuana induced nausea and vomiting, elevated bilirubin) Medical Records Attestation: I reviewed the patient's medical records. Lab Data Attestation: I reviewed the patient's lab results. 08/30/22 14:54 08/30/22 14:54 Labs: Lab Results 08/30/22 08/30/22 08/30/22 Range/Units 14:20 14:54 14:54 WBC 10.0 (4.5-11.0) X10^3/uL RBC 5.38 (4.5-5.9) X10^6/uL Hgb 15.6 (13.5-17.5) g/dL Hct 43.9 (41-53) % MCV 81.7 (80-100) fL MCH 29.0 (26-34) PG MCHC 35.5 (30-36) % RDW 13.1 (11.6-14.8) % Plt Count 290 (150-400) X10^3/uL Neut % (Auto) 65.7 (50-75) % Lymph % (Auto) 24.4 L (25-40) % [place] % (Auto) 8.1 (3-14) % Eos % (Auto) 0.9 L (2-4) % Baso % (Auto) 0.9 (0-2) % Neut # (Auto) 6600 (7572-1467) /uL Lymph # (Auto) 2400 (2096-2037) /uL [place] # (Auto) 800 (0-900) /uL Eos # (Auto) 100 (0-450) /uL Baso # (Auto) 100 (0-100) /uL Sodium 138 (137-145) mmol/L Potassium 3.4 (3.4-5.1) mmol/L Chloride 99 (98-107) mmol/L Carbon Dioxide 26 (22-32) mmol/L BUN 15 (9-20) mg/dL Creatinine 0.75 (0.66-1.25) mg/dL Estimated GFR > 60 (>60) mL/min BUN/Creatinine Ratio 20.0 (6-22) Glucose 109 H (70-100) mg/dL Calcium 9.7 (8.4-10.2) mg/dL Total Bilirubin 1.7 H (0.2-1.3) mg/dL AST 25 (17-59) IU/L ALT 26 (<50) IU/L Alkaline Phosphatase 44 (38-126) U/L Total Protein 8.4 H (6.3-8.2) g/dL Albumin 5.1 H (3.5-5.0) g/dL Globulin 3.3 (1.7-4.1) g/dL Albumin/Globulin Ratio 1.5 (1.0-2.8) Lipase 36 (23-300) U/L Urine RBC 0-1/hpf (0-5/HPF) Urine WBC 1-5/hpf (0-5/HPF) Ur Squamous Epith Cells 1-5 /hpf (0-5/HPF) Amorphous Sediment 1+ Urine Bacteria Few (2-10) H (None) Urine Mucus 2+ H (Negative) Ur Culture Indicated? Specimen cultured Point of care testing: Urine Dip Bedside Urine Glucose Negative Bedside Urine Bilirubin - Negative Bedside Urine Ketone ++ 40 Urine Specific [place] 1.030 Bedside Urine Occult Blood - Negative Bedside Urine pH 5.5 Bedside Urine Protein +/- 15 Bedside Urine Urobilinogen - Negative Bedside Urine Nitrite - Negative Bedside Urine Leukocytes + 70 Esterase Imaging Data US - abdomen: Radiologist's Impression: [address] [address] Ultrasound Report Signed Patient: Alan Doran MR#: [id number] : 2000 Acct:[id number] Age/Sex: 22 / M Date of Service: 08/30/22 Loc: ED Accession Number: [id number] ?? Procedure: US abdomen limited Ordering Provider: Audrey Titus P.A-C PROCEDURE:? US ABDOMEN LIMITED ? INDICATIONS:? PAIN. NAUSEA AND VOMITING. ELEVATED BILIRUBIN. ? TECHNIQUE:? Real-time scanning was performed of the abdominal and retroperitoneal organs, with image documentation.? ? COMPARISON:? [facility], , US ABDOMEN LIMITED, 04/09/2022, 19:31. ? FINDINGS:? ? Liver:? Liver is normal in size and homogeneous in echotexture.? Fatty infiltration of the falciform ligament measuring 3.3 x 3.5 x 2.4 cm. ? Gallbladder:? The gallbladder has no gallstones, pericholecystic fluid, gallbladder wall thickening, or surrounding inflammatory change.? ? Biliary ducts:? Intrahepatic bile ducts are non-dilated.? Extrahepatic bile duct caliber measures 3.3 mm.? Normal is 6-7 mm or less in diameter, or 10 mm or less post-cholecystectomy.? ? Pancreas:? Not well seen ? Other:? At the area of pain in the supraumbilical, at the umbilicus, and infraumbilical soft tissues no ultrasound abnormality is identified. ? IMPRESSION:? No acute ultrasound abnormality. ? Dictated by: Daniel Ponce M.D. on 08/30/2022 at 15:53 ? ? Approved by: Daniel Ponce M.D. on 08/30/2022 at 15:55?? MDM Narrative Medical decision making narrative: This is a 22-year-old male presents with concern for nausea and vomiting for the past 4 days as well as some abdominal pain with history of similar episodes multiple times per year. No alcohol use for multiple months however patient does use marijuana regularly. Exam is concerning for right upper quadrant tenderness and tenderness over the pancreas as well as some right lower quadrant discomfort with exam. Labs are obtained which are unremarkable with the exception of elevated bilirubin to 1.7 although notably on chart review when patient was seen for similar symptoms approximately 1 year ago he also had elevated bilirubin of 1.7. Patient is definitely dehydrated based on urine and suspicion for UTI. He is treated with 1 L 2 boluses of NS, 15 mg Toradol IV as well as Zofran 4 mg IV with resolution of his pain and symptoms. Right upper quadrant ultrasound is unremarkable. I have low suspicion for other intra-abdominal acute process, patient has had similar episodes of the same symptoms in the past, I think hyperemesis associated with marijuana use is 1 possible cause for his discomfort. He is advised to follow up closely with primary care provider regarding these episodes, prescription today for Zofran, also prescription for cefdinir for UTI. He tolerates p.o. challenge upon discharge. Advised regarding return precautions, follow-up plan discussed, all questions answered. <Gerardo Bowers, - Last Filed: 08/30/22 21:14> Lab Data Labs: Lab Results 08/30/22 08/30/22 08/30/22 Range/Units 14:20 14:54 14:54 WBC 10.0 (4.5-11.0) X10^3/uL RBC 5.38 (4.5-5.9) X10^6/uL Hgb 15.6 (13.5-17.5) g/dL Hct 43.9 (41-53) % MCV 81.7 (80-100) fL MCH 29.0 (26-34) PG MCHC 35.5 (30-36) % RDW 13.1 (11.6-14.8) % Plt Count 290 (150-400) X10^3/uL Neut % (Auto) 65.7 (50-75) % Lymph % (Auto) 24.4 L (25-40) % [place] % (Auto) 8.1 (3-14) % Eos % (Auto) 0.9 L (2-4) % Baso % (Auto) 0.9 (0-2) % Neut # (Auto) 6600 (2567-5441) /uL Lymph # (Auto) 2400 (8025-7717) /uL [place] # (Auto) 800 (0-900) /uL Eos # (Auto) 100 (0-450) /uL Baso # (Auto) 100 (0-100) /uL Sodium 138 (137-145) mmol/L Potassium 3.4 (3.4-5.1) mmol/L Chloride 99 (98-107) mmol/L Carbon Dioxide 26 (22-32) mmol/L BUN 15 (9-20) mg/dL Creatinine 0.75 (0.66-1.25) mg/dL Estimated GFR > 60 (>60) mL/min BUN/Creatinine Ratio 20.0 (6-22) Glucose 109 H (70-100) mg/dL Calcium 9.7 (8.4-10.2) mg/dL Total Bilirubin 1.7 H (0.2-1.3) mg/dL AST 25 (17-59) IU/L ALT 26 (<50) IU/L Alkaline Phosphatase 44 (38-126) U/L Total Protein 8.4 H (6.3-8.2) g/dL Albumin 5.1 H (3.5-5.0) g/dL Globulin 3.3 (1.7-4.1) g/dL Albumin/Globulin Ratio 1.5 (1.0-2.8) Lipase 36 (23-300) U/L Urine RBC 0-1/hpf (0-5/HPF) Urine WBC 1-5/hpf (0-5/HPF) Ur Squamous Epith Cells 1-5 /hpf (0-5/HPF) Amorphous Sediment 1+ Urine Bacteria Few (2-10) H (None) Urine Mucus 2+ H (Negative) Ur Culture Indicated? Specimen cultured Point of care testing: Urine Dip Bedside Urine Glucose Negative Bedside Urine Bilirubin - Negative Bedside Urine Ketone ++ 40 Urine Specific [place] 1.030 Bedside Urine Occult Blood - Negative Bedside Urine pH 5.5 Bedside Urine Protein +/- 15 Bedside Urine Urobilinogen - Negative Bedside Urine Nitrite - Negative Bedside Urine Leukocytes + 70 Esterase Discharge Plan Departure Patient Disposition: Home Clinical Impression: Acute UTI, Nausea & vomiting, Abdominal pain, Elevated bilirubin Activity Restrictions/Additional Instructions: *You have been diagnosed with [nausea, vomiting, abdominal pain elevated bilirubin] *What to do: *Please continue to take your regular medications as directed. [X ] New medication prescriptions sent to your pharmacy: [ ] [ ] New medication written as a paper prescription [ ] No new medications given *Please follow up with your primary care provider in 2-3 days, call for an appointment. Let them know you were seen in the Emergency Department and that we ask that you be seen in follow up. We will electronically transmit a record of today's note if your PCP is in our system. Your labs today were all looking okay with the exception of your urine which is suggestive of a UTI, did prescribe antibiotics for this. The other lab that was a little abnormal was your bilirubin this is produced in the liver this was slightly elevated but I note it was also elevated the last time you were here and had labs done. We did do an ultrasound of your abdomen right upper quadrant and the area of your pain to further evaluate which did not show any concerning findings. Your other labs looked okay, we did give you some fluids today as well as some antinausea medicine and some medicine to help with pain. I encourage you to take small sips of fluids take the antinausea medicine prescribed today and take the antibiotic as prescribed as well. If you do have worsening pain or symptoms or unable to keep food or fluids down despite using the antinausea medicine and taking it slow with eating and drinking, please not hesitate to seek further evaluation. Please follow-up closely with your primary care provider you can talk to them about further evaluation for your ongoing abdominal issues. As we discussed sometimes using marijuana products can cause problems with intractable nausea and vomiting so there is a chance this could be related to her symptoms. *If you do not have a primary care provider please contact the [facility] Resource line at [phone]. They will ask some questions about your medical history and help get you set up with a doctor in the community. *Return to Emergency Department if you should have any new, worsening or concerning symptoms, such as [fever greater than 101 F, shaking chills, worsening pain, persistent vomiting or other bothersome symptoms] Prescriptions: New ondansetron 4 mg tablet,disintegrating 4 mg PO Q6H PRN (Reason: nausea and vomiting) 10 Days Qty: 30 1RF cefdinir 300 mg capsule 300 mg PO Q12H 5 Days Qty: 10 0RF No Action capsaicin 0.075 % cream 1 applic topical BID PRN (Reason: vomiting) Qty: 120 0RF Rx Instructions: do not wash area for at least 30 min after application ondansetron 4 mg tablet,disintegrating 4 mg PO Q8H PRN (Reason: nausea and vomiting) Qty: 10 0RF ondansetron HCl 4 mg tablet 4 mg PO Q8HR PRN (Reason: nausea and vomiting) Qty: 14 0RF loratadine [Claritin] 10 mg tablet 10 mg PO DAILY Qty: 14 0RF metoclopramide HCl [Reglan] 10 mg tablet 10 mg PO Q6H PRN (Reason: nausea and vomiting) Qty: 10 0RF prednisone 20 mg tablet 40 mg PO DAILY Qty: 10 0RF Referrals: Miscellaneous,Doctor, MD [Primary Care Provider] - Stand Alone Forms: Patient Portal/API <Gerardo Bowers DO - Last Filed: 08/30/22 21:14> Cosign ED Attending Cosignature Attestation: Dr Bowers Co-Sign Statement: I was available for consultation during this patient's emergency department visit. This chart is signed by myself for administrative purposes only. I did not have direct contact with this patient during this visit. They were seen independently by the APC.
[2022-08-30 14:47] LABS: Bacteria Urine Few (2-10); Culture Indicated Urine Specimen Cultured; Mucus Urine 2+ (Negative); RBC Urine 0-1/HPF (0-5/HPF); Squamous Epithelial Cell Urine 1-5 /HPF (0-5/HPF); WBC Urine 1-5/HPF (0-5/HPF)
[2022-08-30 15:01] LABS: Add Manual Diff / Slide Review NO; Basophils Absolute Auto 100 /uL (0-100); Basophils Percent Auto 0.9 % (0-2); Eosinophils Absolute Auto 100 /uL (0-450); Eosinophils Percent Auto 0.9 % (2-4); Hematocrit 43.9 % (41-53); Hemoglobin 15.6 g/dL (13.5-17.5); Lymphocytes Absolute Auto 2400 /uL (1100-4500); Lymphocytes Percent Auto 24.4 % (25-40); Mean Corpuscular HGB Conc 35.5 % (30-36); Mean Corpuscular Volume 81.7 fL (80-100); Monocytes Absolute Auto 800 /uL (0-900); Monocytes Percent Auto 8.1 % (3-14); Neutrophils Absolute Auto 6600 /uL (1500-7000); Neutrophils Percent Auto 65.7 % (50-75); Platelet Count 290 X10^3/uL (150-400); Red Blood Cell Count 5.38 X10^6/uL (4.5-5.9); Red Cell Distribution Width 13.1 % (11.6-14.8)
[2022-08-30] MEDS: ONDANSETRON 4 MG/2 ML INJ IV (15:04)
[2022-08-30] MEDS: KETOROLAC 30 MG/ML VIAL 15 MG IV (15:04)
[2022-08-30] MEDS: SODIUM CHLORIDE 0.9% 1,000 ML 1000 ML IV ×2 (15:04→16:49)
[2022-08-30 15:12] LABS: Alanine Aminotransferase 26 IU/L (<50); Albumin 5.1 g/dL (3.5-5.0); Albumin Globulin Ratio 1.5 (1.0-2.8); Alkaline Phosphatase 44 U/L (38-126); Aspartate Aminotransferase 25 IU/L (17-59); Bilirubin Total 1.7 mg/dL (0.2-1.3); Blood Urea Nitrogen 15 mg/dL (9-20); Calcium 9.7 mg/dL (8.4-10.2); Carbon Dioxide 26 mmol/L (22-32); Chloride 99 mmol/L (98-107); Estimated Glomerular Filt Rate > 60 mL/min (>60); Globulin 3.3 g/dL (1.7-4.1); Glucose 109 mg/dL (70-100); HEMOLYSIS < 15 (0-50); Lipase 36 U/L (23-300); Potassium 3.4 mmol/L (3.4-5.1); Sodium 138 mmol/L (137-145); Total Protein 8.4 g/dL (6.3-8.2)
[2022-08-30 15:18] LABS: Amorphous Sediment Urine 1+
--- NOTE | 2022-08-30 15:25 | DI.US.S_ITS ---
PROCEDURE: US ABDOMEN LIMITED INDICATIONS: PAIN. NAUSEA AND VOMITING. ELEVATED BILIRUBIN. TECHNIQUE: Real-time scanning was performed of the abdominal and retroperitoneal organs, with image documentation. COMPARISON: [facility], US, US ABDOMEN LIMITED, 04/09/2022, 19:31. FINDINGS: Liver: Liver is normal in size and homogeneous in echotexture. Fatty infiltration of the falciform ligament measuring 3.3 x 3.5 x 2.4 cm. Gallbladder: The gallbladder has no gallstones, pericholecystic fluid, gallbladder wall thickening, or surrounding inflammatory change. Biliary ducts: Intrahepatic bile ducts are non-dilated. Extrahepatic bile duct caliber measures 3.3 mm. Normal is 6-7 mm or less in diameter, or 10 mm or less post-cholecystectomy. Pancreas: Not well seen Other: At the area of pain in the supraumbilical, at the umbilicus, and infraumbilical soft tissues no ultrasound abnormality is identified. IMPRESSION: No acute ultrasound abnormality. Dictated by: Daniel Ponce M.D. on 08/30/2022 at 15:53 Approved by: Daniel Ponce M.D. on 08/30/2022 at 15:55
[2022-08-30 18:07] VITALS: BP 154/87; PULSE 74; RESP 20; TEMP 36.7; O2SAT 98
== END 2022-08-30 18:00 | disposition home or self-care (01) ==
PROVIDERS: Emergency Provider Student in an Organized Health Care Education/Training Program; Family Provider Pediatrics
DX: R10.84 Generalized abdominal pain (principal); N39.0 Urinary tract infection, site not specified; R11.2 Nausea with vomiting, unspecified; E80.6 Other disorders of bilirubin metabolism
CPT/HCPCS: 36415; 76705; 80053; 81003; 81015; 83690; 85025; 87086; 96374; 96375; 99284; J1885; J2405

== ENCOUNTER 2022-11-11 11:43 | Emergency (ER) | payer SELFPAY ==
[2022-11-11] VITALS (9 sets, daily range): BP systolic 128–144; BP diastolic 82–100; PULSE 69–109; RESP 18; TEMP 36.8; O2SAT 95–98; BMI 26.7
[2022-11-11 12:54] LABS: Bacteria Urine Few (2-10); Culture Indicated Urine Specimen Cultured; RBC Urine None Seen (0-5/HPF); Squamous Epithelial Cell Urine 1-5 /HPF (0-5/HPF); WBC Urine 1-5/HPF (0-5/HPF)
--- NOTE | 2022-11-11 16:41 | ED.NAVMDI ---
HPI - Nausea/Vomiting/Diarrhea General Chief complaint: Nausea/Vomiting/Diarrhea Stated complaint: N/ haven't eaten in a week Time Seen by Provider: 11/11/22 14:38 Source: patient Mode of arrival: Ambulatory History of Present Illness HPI Narrative: Patient 22-year-old male history of cyclic vomiting presenting today with nausea vomiting ongoing for about a week. He reports that he frequently has episodes of vomiting for about a week he says that he is lost about 15 lb which typically happens. He has been taking some nausea medication at home but does not feel like it is working. He is not hypotensive or tachycardic he is now been in the ED for about 4 hours and vitals have remained stable. He is not had any further vomiting in the ED. He was offered Zofran apparently but declined. Now tolerating some water and a. No abdominal pain. No chest pain dizziness or lightheadedness. Is not passing out. Related Data Previous Rx's Medication Instructions Recorded loratadine 10 mg tablet (Claritin) 10 mg PO DAILY #14 tabs 04/05/20 metoclopramide HCl 10 mg tablet 10 mg PO Q6H PRN nausea and 04/22/21 (Reglan) vomiting #10 tabs prednisone 20 mg tablet 40 mg PO DAILY #10 tabs 04/22/21 capsaicin 0.075 % topical cream 1 applic topical BID PRN vomiting 05/30/21 #120 grams ondansetron 4 mg disintegrating 4 mg PO Q8H PRN nausea and 05/30/21 tablet vomiting #10 tabs ondansetron HCl 4 mg tablet 4 mg PO Q8HR PRN nausea and 04/09/22 vomiting #14 tabs ondansetron 4 mg disintegrating 4 mg PO Q6H PRN nausea and 08/30/22 tablet vomiting 10 days #30 tabs ondansetron 4 mg disintegrating 4 mg PO Q8H PRN nausea and 11/11/22 tablet vomiting #20 tabs Allergies Allergy/AdvReac Type Severity Reaction Status Date / Time No Known Drug Allergies Allergy Verified 08/30/22 14:06 Review of Systems Review of Systems ROS Unobtainable: All systems reviewed & are unremarkable except as noted in HPI and below Patient History Medical History (Updated 11/11/22 @ 16:55 by Wendy Ivey DO) No pertinent family history Reactive airway disease Surgical History No pertinent past surgical history Social History Smoking Status: Current every day smoker Smoking Status: Current every day smoker tobacco type: vaping alcohol intake frequency: other Substance Use Type: marijuana Exam Initial Vital Signs Initial Vital Signs: Vital Signs Temperature 98.3 F 11/11/22 12:00 Pulse Rate 89 11/11/22 12:00 Respiratory Rate 18 11/11/22 12:00 Blood Pressure 136/86 11/11/22 12:00 Pulse Oximetry 96 11/11/22 12:00 Oxygen Delivery Method Room Air 11/11/22 12:00 GENERAL: Alert well-appearing 22-year-old male and in no acute distress. HEENT: Head atraumatic,EOMI, pupils reactive, face symmetric, moist mucous membranes CARDIOVASCULAR: Regular rate and rhythm without murmurs, rubs or gallops. RESPIRATORY: Breath sounds equal bilaterally, no wheezes rales or rhonchi. ABDOMEN: Soft, nontender. Normoactive bowel sounds all 4 quadrants. No guarding or rebound. EXTREMITIES: Normal range of motion, no clubbing or edema. Neurovascularly intact NEUROLOGICAL: Alert and oriented x4. SKIN: Warm, dry, no laceration, no petechiae, no rashes or lesions. Course Orders Ordered: ED Orders 11/11/22 12:23 Urine Culture Stat Urine Microscopic Stat Discontinued Medications Ondansetron HCl (Ondansetron 4 Mg Odt) 4 mg SL NOW PRN PRN Reason: Nausea And Vomiting Ondansetron HCl (Ondansetron 4 Mg/2 Ml Inj) 4 mg IV NOW PRN PRN Reason: Nausea And Vomiting Vital Signs Vital signs: Vital Signs - 8 hr 11/11/22 12:00 11/11/22 14:21 11/11/22 14:22 Temperature 98.3 F Pulse Rate 89 109 H Respiratory Rate 18 Blood Pressure 136/86 142/100 H Pulse Oximetry 96 98 Oxygen Delivery Method Room Air 11/11/22 14:22 11/11/22 14:30 11/11/22 14:30 Temperature Pulse Rate 69 69 Respiratory Rate Blood Pressure 137/87 Pulse Oximetry 98 95 Oxygen Delivery Method 11/11/22 15:00 11/11/22 15:00 11/11/22 15:30 Temperature Pulse Rate 72 Respiratory Rate Blood Pressure 128/82 140/90 Pulse Oximetry 97 Oxygen Delivery Method 11/11/22 15:30 11/11/22 16:00 11/11/22 16:00 Temperature Pulse Rate 87 69 Respiratory Rate Blood Pressure 137/85 Pulse Oximetry 96 96 Oxygen Delivery Method 11/11/22 16:30 11/11/22 16:30 11/11/22 17:00 Temperature Pulse Rate 84 78 Respiratory Rate Blood Pressure 144/84 H Pulse Oximetry 98 97 Oxygen Delivery Method MDM - Nausea/Vomiting/Diarrhea Lab Data Labs: Lab Results 11/11/22 Range/Units 12:23 Urine RBC None seen (0-5/HPF) Urine WBC 1-5/hpf (0-5/HPF) Ur Squamous Epith Cells 1-5 /hpf (0-5/HPF) Urine Bacteria Few (2-10) H (None) Ur Culture Indicated? Specimen cultured Urine Dip Bedside Urine Glucose Negative Bedside Urine Bilirubin - Negative Bedside Urine Ketone +++ 80 Urine Specific [place] 1.030 Bedside Urine Occult Blood - Negative Bedside Urine pH 6.0 Bedside Urine Protein +/- 15 Bedside Urine Urobilinogen - Negative Bedside Urine Nitrite - Negative Bedside Urine Leukocytes + 70 Esterase MDM Narrative Medical decision making narrative: Patient 22-year-old male history of cyclic vomiting presenting today with nausea vomiting for about 1 week. He reports significant weight loss which he reports happens every time. He overall appears well vitals again have been stable for 4 hours or more without any nausea or vomiting episodes in the ED tolerating fluids at this time. I have offered IV fluids and labs or discharge home with antinausea medication. At this time he would like to just go home with nausea medication. I think it is reasonable. His abdomen is soft and nontender no concern for an acute abdomen. Patient has been seen here multiple times for the same. He was hospitalized at [facility] in June but for psychiatric reasons. Records from prior ED visits have been reviewed labs have been drawn those times he is never been hypokalemic or evidence of KALLI. Strong discussion with him about if he is not tolerating fluids he needs to return and correct oral rehydration technique. Discharge Plan Departure Patient Disposition: Home Clinical Impression: Cyclical vomiting Instructions: DI for Vomiting -- Adult Activity Restrictions/Additional Instructions: *You have been diagnosed with cyclic vomiting *What to do: Increase fluids as tolerated, recommend Pedialyte, diluted juice, *Continue to take medications as directed Zofran 4 mg every 6-8 hours if needed for nausea vomiting *Follow up with your primary care provider in 2-3 days or call [phone] *Return to ER if you should have persistent vomiting, not tolerating fluids dizziness lightheadedness [or] any new, worsening or concerning symptoms Prescriptions: New ondansetron 4 mg tablet,disintegrating 4 mg PO Q8H PRN (Reason: nausea and vomiting) Qty: 20 0RF No Action capsaicin 0.075 % cream 1 applic topical BID PRN (Reason: vomiting) Qty: 120 0RF Rx Instructions: do not wash area for at least 30 min after application ondansetron 4 mg tablet,disintegrating 4 mg PO Q8H PRN (Reason: nausea and vomiting) Qty: 10 0RF ondansetron HCl 4 mg tablet 4 mg PO Q8HR PRN (Reason: nausea and vomiting) Qty: 14 0RF ondansetron 4 mg tablet,disintegrating 4 mg PO Q6H PRN (Reason: nausea and vomiting) 10 Days Qty: 30 1RF loratadine [Claritin] 10 mg tablet 10 mg PO DAILY Qty: 14 0RF metoclopramide HCl [Reglan] 10 mg tablet 10 mg PO Q6H PRN (Reason: nausea and vomiting) Qty: 10 0RF prednisone 20 mg tablet 40 mg PO DAILY Qty: 10 0RF Referrals: Miscellaneous,Doctor, MD [Primary Care Provider] - Stand Alone Forms: Patient Portal/API
== END 2022-11-11 17:20 | disposition home or self-care (01) ==
PROVIDERS: Emergency Provider Emergency Medicine; Family Provider Pediatrics
DX: R11.15 Cyclical vomiting syndrome unrelated to migraine (principal)
CPT/HCPCS: 81003; 81015; 87086; 99282

== ENCOUNTER 2023-03-23 09:21 | Emergency (ER) | payer SELFPAY ==
[2023-03-23 09:32] VITALS: BP 137/83; PULSE 97; RESP 16; TEMP 36.7; O2SAT 95
[2023-03-23 10:00] LABS: Add Manual Diff / Slide Review NO; Basophils Absolute Auto 100 /uL (0-100); Basophils Percent Auto 0.8 % (0-2); Eosinophils Absolute Auto 100 /uL (0-450); Eosinophils Percent Auto 0.8 % (2-4); Lymphocytes Absolute Auto 2200 /uL (1100-4500); Lymphocytes Percent Auto 21.9 % (25-40); Mean Corpuscular HGB Conc 35.6 % (30-36); Mean Corpuscular Hemoglobin 29.2 PG (26-34); Mean Corpuscular Volume 81.9 fL (80-100); Monocytes Absolute Auto 700 /uL (0-900); Monocytes Percent Auto 7.3 % (3-14); Neutrophils Absolute Auto 6800 /uL (1500-7000); Neutrophils Percent Auto 69.2 % (50-75); Platelet Count 300 X10^3/uL (150-400); Red Cell Distribution Width 13.2 % (11.6-14.8); White Blood Cell Count 9.8 X10^3/uL (4.5-11.0)
--- NOTE | 2023-03-23 10:06 | PC.NURSE ---
pt denies cp or pressue. pt a&ox4. EKG done.
[2023-03-23 10:13] LABS: Alanine Aminotransferase 26 IU/L (<50); Albumin 5.1 g/dL (3.5-5.0); Albumin Globulin Ratio 1.5 (1.0-2.8); Alkaline Phosphatase 43 U/L (38-126); Aspartate Aminotransferase 27 IU/L (17-59); BUN Creatinine Ratio 18.8 (6-22); Bilirubin Total 1.4 mg/dL (0.2-1.3); Blood Urea Nitrogen 13 mg/dL (9-20); Calcium 10.1 mg/dL (8.4-10.2); Carbon Dioxide 24 mmol/L (22-32); Chloride 98 mmol/L (98-107); Estimated Glomerular Filt Rate > 60 mL/min (>60); Globulin 3.5 g/dL (1.7-4.1); Glucose 140 mg/dL (70-100); HEMOLYSIS < 15 (0-50); Lipase 42 U/L (23-300); Potassium 3.3 mmol/L (3.4-5.1); Sodium 136 mmol/L (137-145); Total Protein 8.6 g/dL (6.3-8.2)
[2023-03-23] MEDS: SODIUM CHLORIDE 0.9% 1,000 ML 1000 ML IV (10:13)
--- NOTE | 2023-03-23 10:17 | ED_ITS ---
HPI - Nausea/Vomiting/Diarrhea General Chief complaint: Nausea/Vomiting/Diarrhea Stated complaint: nausea t-7, can't keep anything down Time Seen by Provider: 03/23/23 10:00 Source: patient Mode of arrival: Ambulatory Limitations: no limitations History of Present Illness HPI Narrative: 23-year-old male with reported history of hyperemesis cannabis past. Patient presents with complaint of nausea and vomiting for the past 7 days with difficulty keeping anything down. He describes mid abdominal pain little bit more on the right upper quadrant but also on the left. Patient states no fevers. He states he has had trouble keeping down even fluids. He states his urine has gotten dark over time. Patient denies any chest pain, no shortness of breath. Denies any chest pressure. Denies any lightheadedness or passing out. States has not had a bowel movement since Thursday but passing flatus regularly. Denies any diarrhea or constipation before this. States no back or flank pain. Patient states emesis looks like bile with phlegm. He states he has had similar episodes was told he had hyperemesis cannabis in the past. States he stopped smoking marijuana approximately 3 weeks ago. Denies any prescription medications, no past medical history otherwise. Denies any prior surgeries. No known drug allergies. Vapes tobacco, no regular alcohol. Was using marijuana regularly until recently no other recreational drugs. Does not follow regularly with primary care. Related Data Previous Rx's Medication Instructions Recorded loratadine 10 mg tablet (Claritin) 10 mg PO DAILY #14 tabs 04/05/20 metoclopramide HCl 10 mg tablet 10 mg PO Q6H PRN nausea and 04/22/21 (Reglan) vomiting #10 tabs prednisone 20 mg tablet 40 mg (2 x 20 mg) PO DAILY #10 tabs 04/22/21 capsaicin 0.075 % topical cream 1 applic topical BID PRN vomiting 05/30/21 #120 grams ondansetron 4 mg disintegrating 4 mg PO Q8H PRN nausea and 05/30/21 tablet vomiting #10 tabs ondansetron HCl 4 mg tablet 4 mg PO Q8HR PRN nausea and 04/09/22 vomiting #14 tabs ondansetron 4 mg disintegrating 4 mg PO Q6H PRN nausea and 08/30/22 tablet vomiting 10 days #30 tabs ondansetron 4 mg disintegrating 4 mg PO Q8H PRN nausea and 11/11/22 tablet vomiting #20 tabs ondansetron 4 mg disintegrating 4 mg PO QID PRN nausea and 03/23/23 tablet vomiting #10 tabs Allergies Allergy/AdvReac Type Severity Reaction Status Date / Time No Known Drug Allergies Allergy Verified 03/23/23 09:34 Review of Systems Review of Systems ROS Unobtainable: All systems reviewed & are unremarkable except as noted in HPI and below Patient History Medical History (Updated 03/23/23 @ 12:00 by Renetta Paredes DO) No pertinent family history Reactive airway disease Surgical History No pertinent past surgical history Social History Smoking Status: Current every day smoker Smoking Status: Current every day smoker tobacco type: vaping alcohol intake frequency: other Substance Use Type: marijuana Exam Narrative Exam Narrative: GENERAL: Alert and oriented x three, well-appearing male in mild distress. HEENT: Head normocephalic, atraumatic, EOMI, pupils reactive, face symmetric, moist mucous membranes NECK: Supple, full range of motion CARDIOVASCULAR: Regular rate and rhythm without murmurs, rubs or gallops. RESPIRATORY: Breath sounds equal bilaterally, no wheezes rales or rhonchi. ABDOMEN: Soft, mild generalized pain but greater in the left upper quadrant and epigastric region.. Normoactive bowel sounds all 4 quadrants. No guarding or rebound, rigidity, no mass, no pulsatile mass or bruit : No CVA tenderness EXTREMITIES: Normal range of motion, no clubbing or edema. 2+ pulses bilateral lower extremities. Neurovascularly intact NEUROLOGICAL: Cranial nerves II through XII grossly intact. Moving all extremities SKIN: Warm, dry, no petechiae, no rashes or lesions. Initial Vital Signs Initial Vital Signs: Vital Signs Temperature 98.0 F 03/23/23 09:32 Pulse Rate 97 H 03/23/23 09:32 Respiratory Rate 16 03/23/23 09:32 Blood Pressure 137/83 03/23/23 09:32 Pulse Oximetry 95 03/23/23 09:32 Oxygen Delivery Method Room Air 03/23/23 09:32 Course Orders Ordered: ED Orders 01/29/24 09:47 Complete Blood Count AUTO DIFF Stat Comprehensive Metabolic Panel Stat Lipase Stat Troponin & CK Cardiac Panel Stat 03/23/23 09:49 Urine Microscopic Stat 03/23/23 10:23 US abdomen limited Stat Discontinued Medications Sodium Chloride (Normal Saline 0.9%) 1,000 mls @ 1,000 mls/hr IV BOLUS ONE Stop: 03/23/23 11:04 Last Infusion: 03/23/23 11:24 Dose: Infused Documented By: Admin: 03/23/23 10:13 Dose: 1,000 mls/hr Documented By: GRISELDA Ondansetron HCl (Ondansetron 4 Mg Odt) 4 mg PO NOW PRN PRN Reason: Nausea And Vomiting Ondansetron HCl (Ondansetron 4 Mg/2 Ml Inj) 4 mg IV NOW PRN PRN Reason: Nausea And Vomiting Potassium Chloride (Potassium Chloride 20 Meq Tab) 40 meq PO NOW ONE Stop: 03/23/23 10:26 Last Admin: 03/23/23 10:28 Dose: 40 meq Documented By: GRISELDA Vital Signs Vital signs: Vital Signs - 8 hr 03/23/23 11:28 Pulse Rate 80 Respiratory Rate 20 Blood Pressure 147/83 H Pulse Oximetry 98 Oxygen Delivery Method Room Air MDM - Nausea/Vomiting/Diarrhea Lab Data 03/23/23 09:47 03/23/23 09:47 Labs: Lab Results 03/23/23 03/23/23 Range/Units 09:47 09:49 WBC 9.8 (4.5-11.0) X10^3/uL RBC 5.50 (4.5-5.9) X10^6/uL Hgb 16.0 (13.5-17.5) g/dL Hct 45.0 (41-53) % MCV 81.9 (80-100) fL MCH 29.2 (26-34) PG MCHC 35.6 (30-36) % RDW 13.2 (11.6-14.8) % Plt Count 300 (150-400) X10^3/uL Neut % (Auto) 69.2 (50-75) % Lymph % (Auto) 21.9 L (25-40) % [place] % (Auto) 7.3 (3-14) % Eos % (Auto) 0.8 L (2-4) % Baso % (Auto) 0.8 (0-2) % Neut # (Auto) 6800 (6923-0335) /uL Lymph # (Auto) 2200 (6726-1718) /uL [place] # (Auto) 700 (0-900) /uL Eos # (Auto) 100 (0-450) /uL Baso # (Auto) 100 (0-100) /uL Sodium 136 L (137-145) mmol/L Potassium 3.3 L (3.4-5.1) mmol/L Chloride 98 (98-107) mmol/L Carbon Dioxide 24 (22-32) mmol/L BUN 13 (9-20) mg/dL Creatinine 0.69 (0.66-1.25) mg/dL Estimated GFR > 60 (>60) mL/min BUN/Creatinine Ratio 18.8 (6-22) Glucose 140 H (70-100) mg/dL Calcium 10.1 (8.4-10.2) mg/dL Total Bilirubin 1.4 H (0.2-1.3) mg/dL AST 27 (17-59) IU/L ALT 26 (<50) IU/L Alkaline Phosphatase 43 (38-126) U/L Total Creatine Kinase 61 (55-170) U/L Troponin I < 0.012 (0.01-0.034) ng/mL Total Protein 8.6 H (6.3-8.2) g/dL Albumin 5.1 H (3.5-5.0) g/dL Globulin 3.5 (1.7-4.1) g/dL Albumin/Globulin Ratio 1.5 (1.0-2.8) Lipase 42 (23-300) U/L Urine RBC None seen (0-5/HPF) Urine WBC None seen (0-5/HPF) Ur Squamous Epith Cells 0-1 /hpf (0-5/HPF) Urine Bacteria None seen (None) Ur Culture Indicated? Cult not indicated Vol Urine Centrifuged 10ml (spun) Urine Dip Bedside Urine Glucose Negative Bedside Urine Bilirubin - Negative Bedside Urine Ketone +++ 80 Urine Specific [place] 1.030 Bedside Urine Occult Blood - Negative Bedside Urine pH 6.0 Bedside Urine Protein + 30 Bedside Urine Urobilinogen - Negative Bedside Urine Nitrite - Negative Bedside Urine Leukocytes - Negative Esterase ECG Data Attestation: I personally reviewed and interpreted this ECG as follows: Prior ECG tracings: not available for review Interpretation: Sinus rhythm rate of 73 MT 168 QRS 86 QTC 427. Patient does have some ST elevation versus MT depression 1 to 3 AVF as well as lateral leads. Patient does not have any priors for comparison. MDM Narrative Medical decision making narrative: 23-year-old male with complaint of nausea vomiting for the past week intermittently but having some difficulty keeping fluids down. Patient denies any chest pain or pressure but has some mid abdominal pain which is worsened on palpation in the epigastric left upper quadrant region less so in the right upper quadrant. Patient notes he has been told he is hyperemesis cannabis in the past he quit using THC he reports 1-3 weeks ago. CBC is appropriate with white count of 9.8 hemoglobin of 16 platelets of 300 lymphocytes are low at 21. Sodium is 136 potassium 3.1 normal renal function electrolytes otherwise with a glucose of 140, total bilirubin is 1.4 down from 1.7. Troponin EKG does show some ST change but appears almost diffuse throughout. Patient does not have priors for comparison. No chest pain, shortness of breath does have nausea vomiting for a week. Discharge Plan Departure Patient Disposition: Home Clinical Impression: Nausea and vomiting, Elevated bilirubin Instructions: Nausea and Vomiting-Adult Activity Restrictions/Additional Instructions: Please follow up for recheck as needed. Your workup today showed a mildly low potassium but otherwise appropriate labs. Ultrasound did not show major changes to the gallbladder or liver. You may take Zofran 1 tablet every 6 hours as needed for nausea. Prescription sent to [facility] in [place]. Continue to hydrate slowly with small sips of fluid, if tolerating over the next 12 hours you can start to increase your fluids and then ultimately increased to solids. Please return for fevers, persistent abdominal back or flank pain, persistent vomiting, lightheadedness or passing out, decreased urine output or signs of dehydration, black or bloody stools or other new or concerning changes. Prescriptions: New ondansetron 4 mg tablet,disintegrating 4 mg PO QID PRN (Reason: nausea and vomiting) Qty: 10 0RF No Action capsaicin 0.075 % cream 1 applic topical BID PRN (Reason: vomiting) Qty: 120 0RF Rx Instructions: do not wash area for at least 30 min after application ondansetron 4 mg tablet,disintegrating 4 mg PO Q8H PRN (Reason: nausea and vomiting) Qty: 10 0RF ondansetron HCl 4 mg tablet 4 mg PO Q8HR PRN (Reason: nausea and vomiting) Qty: 14 0RF ondansetron 4 mg tablet,disintegrating 4 mg PO Q6H PRN (Reason: nausea and vomiting) 10 Days Qty: 30 1RF ondansetron 4 mg tablet,disintegrating 4 mg PO Q8H PRN (Reason: nausea and vomiting) Qty: 20 0RF loratadine [Claritin] 10 mg tablet 10 mg PO DAILY Qty: 14 0RF metoclopramide HCl [Reglan] 10 mg tablet 10 mg PO Q6H PRN (Reason: nausea and vomiting) Qty: 10 0RF prednisone 20 mg tablet 40 mg PO DAILY Qty: 10 0RF Referrals: Miscellaneous,Doctor, MD [Primary Care Provider] - Stand Alone Forms: Patient Portal/API
[2023-03-23 10:18] LABS: Creatine Kinase 61 U/L (55-170)
--- NOTE | 2023-03-23 10:23 | DI.US.S_ITS ---
PROCEDURE: US ABDOMEN LIMITED INDICATIONS: n/v/ more Left pain>Right, but elevated bilirubin TECHNIQUE: Real-time focused scanning was performed of the abdomen, with image documentation. COMPARISON: [facility], , ABDOMEN LIMITED, 08/30/2022, 16:02. FINDINGS: Liver is grossly unremarkable. Gallbladder is grossly unremarkable. No biliary ductal dilatation. Pancreas is not well seen. IVC is patent. Right kidney is grossly unremarkable. IMPRESSION: No acute process. Dictated by: Paula Gibson M.D. on 03/23/2023 at 11:31 Approved by: Paula Gibson M.D. on 03/23/2023 at 11:32
[2023-03-23 10:28] LABS: Urine Volume 10mL (spun)
[2023-03-23] MEDS: POTASSIUM CHLORIDE 20 MEQ TAB 40 MEQ PO (10:28)
[2023-03-23 10:29] LABS: Bacteria Urine None Seen; RBC Urine None Seen (0-5/HPF); Squamous Epithelial Cell Urine 0-1 /HPF (0-5/HPF); WBC Urine None Seen (0-5/HPF)
[2023-03-23 10:30] LABS: Culture Indicated Urine Cult Not Indicated
[2023-03-23 10:31] LABS: Troponin I < 0.012 ng/mL (0.01-0.034)
[2023-03-23 11:28] VITALS: BP 147/83; PULSE 80; RESP 20; O2SAT 98
== END 2023-03-23 12:16 | disposition home or self-care (01) ==
PROVIDERS: Emergency Provider Emergency Medicine; Family Provider Pediatrics
DX: R11.2 Nausea with vomiting, unspecified (principal); R17 Unspecified jaundice; R10.11 Right upper quadrant pain; R10.12 Left upper quadrant pain
CPT/HCPCS: 36415; 76705; 80053; 81003; 81015; 82550; 83690; 84484; 85025; 93005; 99284

== ENCOUNTER 2023-11-15 09:07 | Emergency (ER) | payer SELFPAY ==
[2023-11-15 09:24] VITALS: BP 128/96; PULSE 88; RESP 16; TEMP 36.9; O2SAT 97; BMI 25.7
[2023-11-15 09:38] LABS: Appearance Urine UA CLEAR; Bilirubin Urine UA 2+ (NEGATIVE); Color Urine UA YELLOW; Glucose Urine UA NEGATIVE (Negative); Ketones Urine UA 3+ (NEGATIVE); Leukocyte Esterase Urine UA NEGATIVE (NEGATIVE); Nitrite Urine UA NEGATIVE (Negative); Occult Blood Urine UA NEGATIVE (Negative); Protein Urine UA TRACE (Negative); Specific Gravity Urine UA >=1.030 (1.000-1.035)
[2023-11-15 09:48] LABS: Bacteria Urine None Seen; Culture Indicated Urine Cult Not Indicated; Hyaline Casts Urine 0-1/LPF; Ictotest Urine Positive (Negative); RBC Urine 0-1/HPF (0-5/HPF); Squamous Epithelial Cell Urine 1-5 /HPF (0-5/HPF); Urine Volume 10mL (spun); WBC Urine 0-1/HPF (0-5/HPF)
--- NOTE | 2023-11-15 09:58 | ED.GENADULT ---
HPI - General Adult General Chief complaint: Urogenital-Male Stated complaint: nausea, blood in urine Time Seen by Provider: 11/15/23 09:21 Source: patient Mode of arrival: Ambulatory Limitations: no limitations History of Present Illness HPI narrative: Patient is a 23-year-old otherwise healthy male who states that on Thursday he noticed some blood in his urine. Since that time he was noted at dark-colored urine. No pain with urination. No fevers. Over the past 24 hours he has had some nausea but no vomiting. He was had a urinary tract infection in the past. He states it was caused because he was uncircumcised and was not cleaning things well. This was several years ago. No history of sexually transmitted infections. No abdominal pain. Related Data Previous Rx's Medication Instructions Recorded loratadine 10 mg tablet (Claritin) 10 mg PO DAILY #14 tabs 04/05/20 metoclopramide HCl 10 mg tablet 10 mg PO Q6H PRN nausea and 04/22/21 (Reglan) vomiting #10 tabs prednisone 20 mg tablet 40 mg (2 x 20 mg) PO DAILY #10 tabs 04/22/21 capsaicin 0.075 % topical cream 1 applic topical BID PRN vomiting 05/30/21 #120 grams ondansetron 4 mg disintegrating 4 mg PO Q8H PRN nausea and 05/30/21 tablet vomiting #10 tabs ondansetron HCl 4 mg tablet 4 mg PO Q8HR PRN nausea and 04/09/22 vomiting #14 tabs ondansetron 4 mg disintegrating 4 mg PO Q6H PRN nausea and 08/30/22 tablet vomiting 10 days #30 tabs ondansetron 4 mg disintegrating 4 mg PO Q8H PRN nausea and 11/11/22 tablet vomiting #20 tabs ondansetron 4 mg disintegrating 4 mg PO QID PRN nausea and 03/23/23 tablet vomiting #10 tabs Allergies Allergy/AdvReac Type Severity Reaction Status Date / Time No Known Drug Allergies Allergy Verified 03/23/23 09:34 Review of Systems Review of Systems Narrative: See HPI Patient History Medical History (Updated 11/15/23 @ 11:19 by Gerardo Bowers DO) No pertinent family history Reactive airway disease Surgical History No pertinent past surgical history Social History Smoking Status: Current every day smoker Smoking Status: Current every day smoker tobacco type: vaping alcohol intake frequency: other Substance Use Type: marijuana Exam Initial Vital Signs Initial Vital Signs: Vital Signs Temperature 98.4 F 11/15/23 09:24 Pulse Rate 88 11/15/23 09:24 Respiratory Rate 16 11/15/23 09:24 Blood Pressure 128/96 H 11/15/23 09:24 Pulse Oximetry 97 11/15/23 09:24 Oxygen Delivery Method Room Air 11/15/23 09:24 Resp Effort & Inspection: normal respiratory effort Cardio Rate: regular rate GI Inspection: normal to inspection and non-distended Palpation: soft External: uncircumcised Penis: no masses, no swelling and no vesicles Scrotum: scrotum normal Other: Small area of redness right side of the meatus. Skin Other: Small area of redness to the right side of the meatus on the glans of the penis otherwise no skin changes. Course Orders Ordered: ED Orders 11/15/23 09:28 Chlamydia Gonorrhea PCR -URINE Stat Ictotest Urine Stat Urinalysis and Microscopic Stat Urine Culture Stat Vital Signs Vital signs: Vital Signs - 8 hr 11/15/23 09:24 Temperature 98.4 F Pulse Rate 88 Respiratory Rate 16 Blood Pressure 128/96 H Pulse Oximetry 97 Oxygen Delivery Method Room Air Medical Decision Making Lab Data Lab results reviewed: Yes I reviewed the patient's lab results. Labs: Lab Results 11/15/23 Range/Units 09:28 Urine Color Yellow Urine Appearance Clear Urine pH 6.0 (4.5-8.0) Ur Specific [place] >=1.030 H (1.000-1.035) Urine Protein Trace H (Negative) Urine Glucose (UA) Negative (Negative) g/dL Urine Ketones 3+ H (NEGATIVE) Urine Occult Blood Negative (Negative) Urine Nitrate Negative (Negative) Urine Bilirubin 2+ H (NEGATIVE) Ur Bilirubin Confirm Positive H (Negative) Urine Urobilinogen 1.0 (0.2) E.U./dL Ur Leukocyte Esterase Negative (NEGATIVE) Urine RBC 0-1/hpf (0-5/HPF) Urine WBC 0-1/hpf (0-5/HPF) Ur Squamous Epith Cells 1-5 /hpf (0-5/HPF) Urine Bacteria None seen (None) Hyaline Casts 0-1/lpf (None) Ur Culture Indicated? Cult not indicated Vol Urine Centrifuged 10ml (spun) Ur Chlamydia DNA (PCR) Not detected N gonorrhoeae DNA (PCR) Not detected MDM Narrative Medical decision making narrative: Urinalysis today is pretty unremarkable. No signs of infection. No blood in his urine today. He declined any treatment for his nausea. He was no abdominal pain. Gonorrhea and chlamydia are negative. I feel that they abrasion on the right side of his glans next the meatus is not the source of the bleeding. It does not look to be an infectious etiology. Advised that the patient follow-up with urology if his symptoms continue. He was given information for this. He was given return precautions. He expressed understanding and agreement. Discharge Plan Departure Patient Disposition: Home Clinical Impression: Hematuria Instructions: DI for Hematuria Activity Restrictions/Additional Instructions: You can contact [phone] to help he was establish a primary care doctor in the local area. If your symptoms continue you will need follow-up with Urology. You can contact them with the number provided below. Return to the emergency department for new or worsening symptoms. Prescriptions: No Action capsaicin 0.075 % cream 1 applic topical BID PRN (Reason: vomiting) Qty: 120 0RF Rx Instructions: do not wash area for at least 30 min after application ondansetron 4 mg tablet,disintegrating 4 mg PO Q8H PRN (Reason: nausea and vomiting) Qty: 10 0RF ondansetron HCl 4 mg tablet 4 mg PO Q8HR PRN (Reason: nausea and vomiting) Qty: 14 0RF ondansetron 4 mg tablet,disintegrating 4 mg PO Q6H PRN (Reason: nausea and vomiting) 10 Days Qty: 30 1RF ondansetron 4 mg tablet,disintegrating 4 mg PO Q8H PRN (Reason: nausea and vomiting) Qty: 20 0RF ondansetron 4 mg tablet,disintegrating 4 mg PO QID PRN (Reason: nausea and vomiting) Qty: 10 0RF loratadine [Claritin] 10 mg tablet 10 mg PO DAILY Qty: 14 0RF metoclopramide HCl [Reglan] 10 mg tablet 10 mg PO Q6H PRN (Reason: nausea and vomiting) Qty: 10 0RF prednisone 20 mg tablet 40 mg PO DAILY Qty: 10 0RF Referrals: Miscellaneous,Doctor, MD [Primary Care Provider] - Stephan Tapia MD [Physician] - Stand Alone Forms: Patient Portal/API
[2023-11-15 11:06] LABS: Urine N gonorrhoeae NOT DETECTED
[2023-11-15 11:12] LABS: Urine Chlamydia NOT DETECTED
== END 2023-11-15 11:24 | disposition home or self-care (01) ==
PROVIDERS: Emergency Provider Emergency Medicine; Family Provider Pediatrics
DX: R31.9 Hematuria, unspecified (principal)
CPT/HCPCS: 81001; 87086; 87491; 87591; 99281; 99282

== ENCOUNTER 2024-01-15 09:24 | Emergency (ER) | payer SELFPAY ==
[2024-01-15 09:25] VITALS: BP 144/91; PULSE 85; RESP 13; TEMP 36.9; O2SAT 95; BMI 26.6
--- NOTE | 2024-01-15 09:33 | DI.RAD.S_ITS ---
PROCEDURE: XR HAND RT MIN 3V INDICATIONS: hand injury TECHNIQUE: 3 views of the hand(s) acquired. COMPARISON: None. FINDINGS: Bones: No fractures or dislocations. Carpal bones are normally aligned. No suspicious bony lesions. Soft tissues: No suspicious soft tissue calcifications. IMPRESSION: No visualized acute fracture or dislocation. However, if clinical concern and/or pain persist, short interval imaging followup in 7-10 days is recommended, as occult injury cannot be definitively excluded. Dictated by: Krissy Elder M.D. on 01/15/2024 at 10:12 Approved by: Krissy Elder M.D. on 01/15/2024 at 10:13
[2024-01-15] MEDS: IBUPROFEN 400 MG TABLET PO (10:35)
[2024-01-15] MEDS: ACETAMINOPHEN 325 MG TABLET PO (10:35)
--- NOTE | 2024-01-15 10:44 | ED_ITS ---
HPI - General Adult General Chief complaint: Extremity Injury, Upper Stated complaint: r hand injury Time Seen by Provider: 01/15/24 09:42 Source: patient Mode of arrival: Ambulatory History of Present Illness HPI narrative: Otherwise healthy 23-year-old gentleman who comes in with right hand pain. He states that about a month ago he punched a wall and cause some problem to his middle knuckle, 2 days ago he punched another wall is now having some pain along the lateral aspect of the hand. He is neurovascularly intact, there was no other complaints or injuries Related Data Previous Rx's Medication Instructions Recorded loratadine 10 mg tablet (Claritin) 10 mg PO DAILY #14 tabs 04/05/20 metoclopramide HCl 10 mg tablet 10 mg PO Q6H PRN nausea and 04/22/21 (Reglan) vomiting #10 tabs prednisone 20 mg tablet 40 mg (2 x 20 mg) PO DAILY #10 tabs 04/22/21 capsaicin 0.075 % topical cream 1 applic topical BID PRN vomiting 05/30/21 #120 grams ondansetron 4 mg disintegrating 4 mg PO Q8H PRN nausea and 05/30/21 tablet vomiting #10 tabs ondansetron HCl 4 mg tablet 4 mg PO Q8HR PRN nausea and 04/09/22 vomiting #14 tabs ondansetron 4 mg disintegrating 4 mg PO Q6H PRN nausea and 08/30/22 tablet vomiting 10 days #30 tabs ondansetron 4 mg disintegrating 4 mg PO Q8H PRN nausea and 11/11/22 tablet vomiting #20 tabs ondansetron 4 mg disintegrating 4 mg PO QID PRN nausea and 03/23/23 tablet vomiting #10 tabs Allergies Allergy/AdvReac Type Severity Reaction Status Date / Time No Known Drug Allergies Allergy Verified 01/15/24 09:34 Review of Systems Review of Systems Narrative: Pertinent positive and negative findings as per HPI Patient History Medical History (Updated 01/15/24 @ 10:50 by Craline Bassett MD) No pertinent family history Reactive airway disease Surgical History No pertinent past surgical history Social History Smoking Status: Current every day smoker Smoking Status: Current every day smoker tobacco type: vaping alcohol intake frequency: other Substance Use Type: marijuana Exam Initial Vital Signs Initial Vital Signs: Vital Signs Temperature 98.4 F 01/15/24 09:25 Pulse Rate 85 01/15/24 09:25 Respiratory Rate 13 01/15/24 09:25 Blood Pressure 144/91 H 01/15/24 09:25 Pulse Oximetry 95 01/15/24 09:25 Oxygen Delivery Method Room Air 01/15/24 09:25 General: Alert appropriate in no acute distress Respiratory: Able to speak in full sentences, no obvious respiratory distress Skin: No obvious rashes, warm and dry Neurologic: Grossly intact no obvious asymmetries or abnormalities Psych: appropriate insight and affect, cooperative Extremity: Right hand has some minor swelling contusion over the middle knuckle and some mild tenderness along the lateral aspect of the hand without obvious fractures or step-off. Neurovascularly intact. Course Orders Ordered: ED Orders 01/15/24 09:33 XR hand RT min 3V Stat Discontinued Medications Acetaminophen (Acetaminophen 325 Mg Tablet) 325 mg PO NOW ONE Stop: 01/15/24 10:23 Last Admin: 01/15/24 10:35 Dose: 325 mg Documented By: DOYLE Ibuprofen (Ibuprofen 400 Mg Tablet) 400 mg PO NOW ONE Stop: 01/15/24 10:23 Last Admin: 01/15/24 10:35 Dose: 400 mg Documented By: DOYLE Vital Signs Vital signs: Vital Signs - 8 hr 01/15/24 09:25 Temperature 98.4 F Pulse Rate 85 Respiratory Rate 13 Blood Pressure 144/91 H Pulse Oximetry 95 Oxygen Delivery Method Room Air Medical Decision Making [facility] Narrative Medical decision making narrative: 23-year-old young man who has now sustained 2 injuries to his right hand after punching a wall. Continuing to have aching pain after the initial injury 2 months ago and pain makes it difficult to sleep on his hand from 2 days ago. Hand x-rays do not show any acute abnormalities or obvious fractures He is given oral ibuprofen and Tylenol He is placed in a wrist splint for overall comfort. Neurovascularly intact post placement Findings reviewed with him, recommended punching much softer things and discussed the mechanisms of boxer's fractures. Discussed pain control and reasons to return. He is safe for discharge Discharge Plan Departure Patient Disposition: Home Clinical Impression: Contusion of hand Qualifiers: Encounter type: initial encounter Laterality: right Qualified Code(s): S60.221A - Contusion of right hand, initial encounter Instructions: DI for Contusion Activity Restrictions/Additional Instructions: Thank you for coming in today You managed to actually not break any bones in your hand! We have given you a splint just to help stabilize the hand. Use this as long as it is comfortable. If you continue to insist on punching blum and other unmovable objects, you will eventually break 1 of the bones. This is called a boxer's fracture. I would recommend punching pillows or beds or other softer material. It might also actually be worth a Google search for tips on anger management and self control so you do not feel you actually need to hit something. Using 400 mg of ibuprofen (2 [id number] pills) and 1 Tylenol every 6 hours can be very helpful in controlling pain. If you find that you are getting worse or develop any new symptoms, please feel free to return to the emergency department for further evaluation. Prescriptions: No Action capsaicin 0.075 % cream 1 applic topical BID PRN (Reason: vomiting) Qty: 120 0RF Rx Instructions: do not wash area for at least 30 min after application ondansetron 4 mg tablet,disintegrating 4 mg PO Q8H PRN (Reason: nausea and vomiting) Qty: 10 0RF ondansetron HCl 4 mg tablet 4 mg PO Q8HR PRN (Reason: nausea and vomiting) Qty: 14 0RF ondansetron 4 mg tablet,disintegrating 4 mg PO Q6H PRN (Reason: nausea and vomiting) 10 Days Qty: 30 1RF ondansetron 4 mg tablet,disintegrating 4 mg PO Q8H PRN (Reason: nausea and vomiting) Qty: 20 0RF ondansetron 4 mg tablet,disintegrating 4 mg PO QID PRN (Reason: nausea and vomiting) Qty: 10 0RF loratadine [Claritin] 10 mg tablet 10 mg PO DAILY Qty: 14 0RF metoclopramide HCl [Reglan] 10 mg tablet 10 mg PO Q6H PRN (Reason: nausea and vomiting) Qty: 10 0RF prednisone 20 mg tablet 40 mg PO DAILY Qty: 10 0RF Referrals: Miscellaneous,Doctor, MD [Primary Care Provider] - Stand Alone Forms: Patient Portal/API/Survey
[2024-01-15 10:56] VITALS: BP 123/84; PULSE 75; RESP 14; O2SAT 96
== END 2024-01-15 11:03 | disposition home or self-care (01) ==
PROVIDERS: Emergency Provider Emergency Medicine; Family Provider Pediatrics
DX: S60.221A Contusion of right hand, initial encounter (principal); W22.8XXA Striking against or struck by other objects, initial encounter
CPT/HCPCS: 73130; 99283

== ENCOUNTER 2024-05-21 08:26 | Emergency (ER) | payer SELFPAY ==
[2024-05-21] VITALS (9 sets, daily range): BP systolic 147–185; BP diastolic 74–103; PULSE 59–88; RESP 17–22; TEMP 36.8; O2SAT 95–99; BMI 26.7
--- NOTE | 2024-05-21 09:00 | ED.NAVMDI ---
HPI - Nausea/Vomiting/Diarrhea General Chief complaint: Abdominal Pain Stated complaint: Nausea/vomitting Time Seen by Provider: 05/21/24 08:54 Source: patient, RN notes reviewed and old records reviewed Mode of arrival: Ambulatory Limitations: no limitations History of Present Illness HPI Narrative: 24-year-old male history of cyclic vomiting presents with complaint of nausea and vomiting for 3 days. Patient told nursing he has had diarrhea she told myself he has not had a bowel movement for 3 days. Denies fevers. No chest pain, no shortness of breath. He has had nausea or vomiting says about 3 issues to 4 times a day. States initially there was some scant blood but now sort of clear and bile. States no bowel movements for several days passing gas. He states his abdomen is uncomfortable but not painful. Denies any urinary symptoms. Denies any black or bloody stools. He has had these episodes on and off in the past. About every couple months. He states no daily medications. He had did try ondansetron at home this morning. Denies any prior surgeries. No known drug allergies. Vapes tobacco, denies alcohol, states he uses marijuana daily denies any other recreational drugs. He was never had EGD or colonoscopy or further workup besides the emergency department. Denies any family history of GI issues, Crohn's, ulcerative colitis. Related Data Previous Rx's Medication Instructions Recorded loratadine 10 mg tablet (Claritin) 10 mg PO DAILY #14 tabs 04/05/20 metoclopramide HCl 10 mg tablet 10 mg PO Q6H PRN nausea and 04/22/21 (Reglan) vomiting #10 tabs prednisone 20 mg tablet 40 mg (2 x 20 mg) PO DAILY #10 tabs 04/22/21 capsaicin 0.075 % topical cream 1 applic topical BID PRN vomiting 05/30/21 #120 grams ondansetron 4 mg disintegrating 4 mg PO Q8H PRN nausea and 05/30/21 tablet vomiting #10 tabs ondansetron HCl 4 mg tablet 4 mg PO Q8HR PRN nausea and 04/09/22 vomiting #14 tabs ondansetron 4 mg disintegrating 4 mg PO Q6H PRN nausea and 08/30/22 tablet vomiting 10 days #30 tabs ondansetron 4 mg disintegrating 4 mg PO Q8H PRN nausea and 11/11/22 tablet vomiting #20 tabs ondansetron 4 mg disintegrating 4 mg PO QID PRN nausea and 03/23/23 tablet vomiting #10 tabs Allergies Allergy/AdvReac Type Severity Reaction Status Date / Time No Known Drug Allergies Allergy Verified 01/15/24 09:34 Review of Systems Review of Systems ROS Unobtainable: All systems reviewed & are unremarkable except as noted in HPI and below Patient History Medical History (Updated 05/21/24 @ 10:40 by Renetta Paredes DO) No pertinent family history Reactive airway disease Surgical History No pertinent past surgical history Social History Smoking Status: Current every day smoker Smoking Status: Current every day smoker tobacco type: vaping alcohol intake frequency: other Exam Narrative Exam Narrative: GENERAL: Alert and oriented x three, male in mild distress HEENT: Head normocephalic, atraumatic, EOMI, pupils reactive, face symmetric, moist mucous membranes NECK: Supple, full range of motion CARDIOVASCULAR: Regular rate and rhythm without murmurs, rubs or gallops. RESPIRATORY: Breath sounds equal bilaterally, no wheezes rales or rhonchi. ABDOMEN: Soft, nontender. Nondistended. Normoactive bowel sounds all 4 quadrants. No guarding or rebound, rigidity, no mass : No CVA tenderness EXTREMITIES: Normal range of motion, no clubbing or edema. Neurovascularly intact NEUROLOGICAL: Cranial nerves II through XII grossly intact. Moving all extremities SKIN: Warm, dry, no petechiae, no rashes or lesions. Initial Vital Signs Initial Vital Signs: Vital Signs Pulse Rate 87 05/21/24 08:36 Pulse Oximetry 97 05/21/24 08:36 Course Orders Ordered: Discontinued Medications Sodium Chloride (Normal Saline 0.9%) 1,000 mls @ 1,000 mls/hr IV BOLUS ONE Stop: 05/21/24 10:09 Last Infusion: 05/21/24 10:55 Dose: Infused Documented By: Admin: 05/21/24 09:24 Dose: 1,000 mls/hr Documented By: AUSTEN Metoclopramide HCl (Metoclopramide 10 Mg/2 Ml Inj) 10 mg IV NOW ONE Stop: 05/21/24 09:11 Last Admin: 05/21/24 09:24 Dose: 10 mg Documented By: AUSTEN Pantoprazole Sodium (Pantoprazole 40 Mg Vial) 40 mg IV NOW ONE Stop: 05/21/24 09:11 Last Admin: 05/21/24 09:24 Dose: 40 mg Documented By: AUSTEN Vital Signs Vital signs: Vital Signs - 8 hr 05/21/24 08:36 05/21/24 08:37 05/21/24 08:37 Temperature Pulse Rate 87 84 Respiratory Rate Blood Pressure 147/99 H Pulse Oximetry 97 96 Oxygen Delivery Method 05/21/24 08:40 05/21/24 09:00 05/21/24 09:00 Temperature 98.2 F Pulse Rate 79 78 Respiratory Rate 18 Blood Pressure 147/99 H 156/103 H Pulse Oximetry 97 97 Oxygen Delivery Method Room Air 05/21/24 09:30 05/21/24 09:30 05/21/24 10:00 Temperature Pulse Rate 88 Respiratory Rate 20 Blood Pressure 169/97 H 185/87 H Pulse Oximetry 99 Oxygen Delivery Method 05/21/24 10:00 05/21/24 10:30 05/21/24 10:30 Temperature Pulse Rate 64 80 Respiratory Rate 18 22 Blood Pressure 184/90 H Pulse Oximetry 95 96 Oxygen Delivery Method 05/21/24 10:49 05/21/24 10:49 Temperature Pulse Rate 76 Respiratory Rate 18 Blood Pressure 167/78 H Pulse Oximetry 98 Oxygen Delivery Method MDM - Nausea/Vomiting/Diarrhea Lab Data 05/21/24 09:08 05/21/24 09:08 Labs: Lab Results 05/21/24 05/21/24 05/21/24 Range/Units 09:08 10:45 10:45 WBC 7.1 (4.5-11.0) X10^3/uL RBC 5.92 H (4.5-5.9) X10^6/uL Hgb 17.1 (13.5-17.5) g/dL Hct 48.7 (41-53) % MCV 82.2 (80-100) fL MCH 28.9 (26-34) PG MCHC 35.1 (30-36) % RDW 13.1 (11.6-14.8) % Plt Count 248 (150-400) X10^3/uL Neut % (Auto) 63.0 (50-75) % Lymph % (Auto) 25.8 (25-40) % [place] % (Auto) 8.4 (3-14) % Eos % (Auto) 2.0 (2-4) % Baso % (Auto) 0.8 (0-2) % Neut # (Auto) 4500 (2192-1692) /uL Lymph # (Auto) 1800 (3072-5159) /uL [place] # (Auto) 600 (0-900) /uL Eos # (Auto) 100 (0-450) /uL Baso # (Auto) 100 (0-100) /uL Sodium 137 (137-145) mmol/L Potassium 3.5 (3.4-5.1) mmol/L Chloride 98 (98-107) mmol/L Carbon Dioxide 22 (22-32) mmol/L BUN 14 (9-20) mg/dL Creatinine 0.81 (0.66-1.25) mg/dL Estimated GFR > 60 (>60) mL/min BUN/Creatinine Ratio 17.3 (6-22) Glucose 112 H (70-100) mg/dL Calcium 10.0 (8.4-10.2) mg/dL Total Bilirubin 1.9 H (0.2-1.3) mg/dL AST 38 (17-59) IU/L ALT 41 (<50) IU/L Alkaline Phosphatase 53 (38-126) U/L Total Protein 8.8 H (6.3-8.2) g/dL Albumin 5.3 H (3.5-5.0) g/dL Globulin 3.5 (1.7-4.1) g/dL Albumin/Globulin Ratio 1.5 (1.0-2.8) Lipase 48 (23-300) U/L Urine Color Dark yellow Urine Appearance Clear Urine pH 6.0 Normal (4.5-8.0) Ur Specific [place] 1.020 (1.000-1.035) Urine Protein Trace H (Negative) Urine Glucose (UA) Negative (Negative) g/dL Urine Ketones 3+ H (NEGATIVE) Urine Occult Blood Negative (Negative) Urine Nitrate Negative (Negative) Urine Bilirubin 1+ H (NEGATIVE) Ur Bilirubin Confirm Negative (Negative) Urine Urobilinogen 1.0 (0.2) E.U./dL Ur Leukocyte Esterase Negative (NEGATIVE) Urine RBC None seen (0-5/HPF) Urine WBC None seen (0-5/HPF) Ur Squamous Epith Cells 0-1 /hpf (0-5/HPF) Urine Bacteria None seen (None) Urine Mucus 1+ H (Negative) Ur Culture Indicated? Cult not indicated Vol Urine Centrifuged 10ml (spun) U Opiates 300ng/mL cut Negative (Negative) Ur Oxycodone Screen Negative (Negative) Urine Methadone Screen Negative (Negative) Ur Barbiturates Screen Negative (Negative) U Tricyclic Antidepress Negative (Negative) Ur Phencyclidine Scrn Negative (Negative) Ur Amphetamines Screen Negative (Negative) U Methamphetamines Scrn Negative (Negative) Ur MDMA Scrn (Ecstasy) Negative (Negative) U Benzodiazepines Scrn Negative (Negative) Urine Cocaine Screen Negative (Negative) U Marijuana (THC) Screen Positive H (Negative) Urine Specific [place] Normal (Normal) Ur Creatinine Normal (Normal) Urine Dip Bedside Urine Glucose Negative Bedside Urine Bilirubin - Negative Bedside Urine Ketone +++ 80 Urine Specific [place] 1.015 Bedside Urine Occult Blood - Negative Bedside Urine pH 6.0 Bedside Urine Protein +/- 15 Bedside Urine Urobilinogen - Negative Bedside Urine Nitrite - Negative Bedside Urine Leukocytes +/- 15 Esterase MDM Narrative Medical decision making narrative: 24-year-old male kind of abdominal pain nausea or vomiting states no bowel movements for several days. Patient has had similar episodes in the past as use marijuana daily denies any other family history has not ever had further workup outside of the emergency department. Labs normal white count hemoglobin and platelets. Electrolytes are appropriate glucose is 112 normal creatinine, bilirubin is 1.9 has been elevated on prior visits that has far as 2022 with normal AST ALT alk-phos and lipase. Abdominal x-ray shows no acute change without dilated loops of bowel no abnormal stool volume. Urine, trace protein 3+ ketones 1+ bilirubin squamous. UDS positive for THC. Patient received fluids and antiemetics. On rechecked 1037 patient is feeling improved. States he feels he can give a sample. Rechecked in 1104 patient's continues to feel improved feel he can return home. He states he has a ondansetron at home. Discussed his findings from day, discussed possible of hyperemesis cannabis versus other sources of his symptoms. Patient expresses understanding states he has heard of this before. Discharge Plan Departure Patient Disposition: Home Clinical Impression: Nausea & vomiting Instructions: DI for Cannabinoid Hyperemesis Syndrome Activity Restrictions/Additional Instructions: Please follow up for recheck if you are having recurrent episodes of nausea and vomiting would recommend follow up with primary care. One potential cause for nausea vomiting is cannabinoid hyperemesis syndrome abstaining from THC for several months can be helpful to see if this is a potential source of your symptoms. There are multiple areas of information on line including an article from [employer]. Please return if you have fevers, new or worsening abdominal back or flank pain, persistent vomiting, lightheadedness or passing out, black or bloody stools or other new or concerning changes. Prescriptions: No Action capsaicin 0.075 % cream 1 applic topical BID PRN (Reason: vomiting) Qty: 120 0RF Rx Instructions: do not wash area for at least 30 min after application ondansetron 4 mg tablet,disintegrating 4 mg PO Q8H PRN (Reason: nausea and vomiting) Qty: 10 0RF ondansetron HCl 4 mg tablet 4 mg PO Q8HR PRN (Reason: nausea and vomiting) Qty: 14 0RF ondansetron 4 mg tablet,disintegrating 4 mg PO Q6H PRN (Reason: nausea and vomiting) 10 Days Qty: 30 1RF ondansetron 4 mg tablet,disintegrating 4 mg PO Q8H PRN (Reason: nausea and vomiting) Qty: 20 0RF ondansetron 4 mg tablet,disintegrating 4 mg PO QID PRN (Reason: nausea and vomiting) Qty: 10 0RF loratadine [Claritin] 10 mg tablet 10 mg PO DAILY Qty: 14 0RF metoclopramide HCl [Reglan] 10 mg tablet 10 mg PO Q6H PRN (Reason: nausea and vomiting) Qty: 10 0RF prednisone 20 mg tablet 40 mg PO DAILY Qty: 10 0RF Referrals: Miscellaneous,Doctor, MD [Primary Care Provider] - Stand Alone Forms: Patient Portal/API/Survey
--- NOTE | 2024-05-21 09:11 | DI.RAD.S_ITS ---
PROCEDURE: XR ABDOMEN 1V INDICATIONS: n/v TECHNIQUE: One view of the abdomen acquired. COMPARISON: [facility], CT, CT ABDOMEN PELVIS W CON, 04/16/2021, 14:33. [facility], CR, XR ACUTE ABDOMEN SERIES, 04/09/2022, 13:53. FINDINGS: Surgical changes and devices: None. Bowel: Bowel gas pattern is normal. No abnormal stool volume can be seen. Soft tissues: No suspicious abdominal calcifications. Visualized solid organ contours appear normal in size. Bones: No suspicious bony lesions. IMPRESSION: Plain film study within normal limits, without dilated loops of bowel of bowel. No abnormal stool volume. Dictated by: Josesito Enamorado M.D. on 05/21/2024 at 8:40 Approved by: Josesito Enamorado M.D. on 05/21/2024 at 8:41
[2024-05-21 09:17] LABS: Basophils Absolute Auto 100 /uL (0-100); Eosinophils Absolute Auto 100 /uL (0-450); Hemoglobin 17.1 g/dL (13.5-17.5); Monocytes Absolute Auto 600 /uL (0-900); Neutrophils Absolute Auto 4500 /uL (1500-7000); White Blood Cell Count 7.1 X10^3/uL (4.5-11.0)
[2024-05-21 09:23] LABS: Add Manual Diff / Slide Review NO; Basophils Percent Auto 0.8 % (0-2); Hematocrit 48.7 % (41-53); Lymphocytes Absolute Auto 1800 /uL (1100-4500); Lymphocytes Percent Auto 25.8 % (25-40); Mean Corpuscular HGB Conc 35.1 % (30-36); Mean Corpuscular Hemoglobin 28.9 PG (26-34); Mean Corpuscular Volume 82.2 fL (80-100); Monocytes Percent Auto 8.4 % (3-14); Platelet Count 248 X10^3/uL (150-400); Red Blood Cell Count 5.92 X10^6/uL (4.5-5.9); Red Cell Distribution Width 13.1 % (11.6-14.8)
[2024-05-21] MEDS: SODIUM CHLORIDE 0.9% 1,000 ML 1000 ML IV (09:24)
[2024-05-21] MEDS: METOCLOPRAMIDE 10 MG/2 ML INJ IV (09:24)
[2024-05-21] MEDS: PANTOPRAZOLE 40 MG VIAL IV (09:24)
[2024-05-21 09:32] LABS: Alanine Aminotransferase 41 IU/L (<50); Albumin 5.3 g/dL (3.5-5.0); Albumin Globulin Ratio 1.5 (1.0-2.8); Alkaline Phosphatase 53 U/L (38-126); Aspartate Aminotransferase 38 IU/L (17-59); BUN Creatinine Ratio 17.3 (6-22); Bilirubin Total 1.9 mg/dL (0.2-1.3); Blood Urea Nitrogen 14 mg/dL (9-20); Carbon Dioxide 22 mmol/L (22-32); Chloride 98 mmol/L (98-107); Estimated Glomerular Filt Rate > 60 mL/min (>60); Globulin 3.5 g/dL (1.7-4.1); Glucose 112 mg/dL (70-100); HEMOLYSIS 21 (0-50); Lipase 48 U/L (23-300); Potassium 3.5 mmol/L (3.4-5.1); Sodium 137 mmol/L (137-145); Total Protein 8.8 g/dL (6.3-8.2)
[2024-05-21 11:03] LABS: Ur Creatinine Normal (Normal); Ur Specific Gravity Normal (Normal); Urine Amphetamines Negative (Negative); Urine Barbiturates Negative (Negative); Urine Benzodiazepines Negative (Negative); Urine Cocaine Negative (Negative); Urine MDMA Negative (Negative); Urine Methadone Negative (Negative); Urine Methamphetamines Negative (Negative); Urine Opiates Negative (Negative); Urine Oxycodone Negative (Negative); Urine Phencyclidine Negative (Negative); Urine THC Positive (Negative); Urine Tricyclic Antidepressant Negative (Negative); Urine pH Normal (Normal)
[2024-05-21 11:07] LABS: Appearance Urine UA CLEAR; Bilirubin Urine UA 1+ (NEGATIVE); Color Urine UA Dark Yellow; Glucose Urine UA NEGATIVE (Negative); Ketones Urine UA 3+ (NEGATIVE); Leukocyte Esterase Urine UA NEGATIVE (NEGATIVE); Nitrite Urine UA NEGATIVE (Negative); Occult Blood Urine UA NEGATIVE (Negative); Protein Urine UA TRACE (Negative)
[2024-05-21 11:14] LABS: Bacteria Urine None Seen; Culture Indicated Urine Cult Not Indicated; Ictotest Urine Negative (Negative); Mucus Urine 1+ (Negative); RBC Urine None Seen (0-5/HPF); Squamous Epithelial Cell Urine 0-1 /HPF (0-5/HPF); Urine Volume 10mL (spun); WBC Urine None Seen (0-5/HPF)
== END 2024-05-21 11:21 | disposition home or self-care (01) ==
PROVIDERS: Emergency Provider Emergency Medicine; Family Provider Pediatrics
DX: R11.2 Nausea with vomiting, unspecified (principal)
CPT/HCPCS: 36415; 74018; 80053; 80305; 81001; 81003; 83690; 85025; 96361; 96374; 96375; 99284; J2470; J2765

== ENCOUNTER 2025-01-02 12:46 | Emergency (ER) | payer OTHER, SELFPAY ==
--- NOTE | 2025-01-02 13:55 | PC.NURSE ---
No answer x3, 1325, 1345, 1355
== END 2025-01-02 13:58 | disposition left against medical advice (07) ==
PROVIDERS: Emergency Provider Emergency Medicine; Family Provider Pediatrics